=== PATIENT | female | born 1945 | race Caucasian/White ===

== ENCOUNTER 2020-09-03 06:55 | Outpatient (REF) | payer MEDICARE, SELFPAY ==
[2020-09-03 11:11] LABS: MANUAL DIFF FLAG NO
[2020-09-03 11:25] LABS: Basophils Absolute Auto 0.1 X10*3/uL (0.0-0.2); Basophils Percent Auto 0.4 % (0-2); Eosinophils Absolute Auto 0.4 X10*3/uL (0.0-0.4); Eosinophils Percent Auto 3.1 % (0-4); Hematocrit 47.8 % (37-47); Hemoglobin 15.1 g/dl (12.0-16.0); Imm Gran Abs Auto 0.03 X10*3/uL (0.00-0.03); Imm Gran Pct Auto 0.3 % (0.0-0.4); Lymphocytes Absolute Auto 3.2 X10*3/uL (1.2-4.9); Lymphocytes Percent Auto 29.1 % (20-40); Mean Corpuscular HGB Conc 31.6 g/dl (31.0-35.0); Mean Corpuscular Hemoglobin 29.5 pg (27.0-33.0); Mean Corpuscular Volume 93.5 fL (80-98); Mean Platelet Volume 10.9 fL (9.4-12.3); Monocytes Absolute Auto 0.8 X10*3/uL (0.1-1.2); Monocytes Percent Auto 6.8 % (2-11); Neutrophils Absolute Auto 6.7 X10*3/uL (2.0-8.3); Neutrophils Percent Auto 60.3 % (45-73); Platelet Count 260 X10*3/uL (160-400); Red Blood Count 5.11 X10*6/uL (4.20-5.50); Red Cell Distribution Width 12.5 % (11.0-16.0); White Blood Count 11.1 X10*3/uL (4.8-10.8)
[2020-09-03 11:30] LABS: Estimated Average Glucose 134 mg/dL; Hemoglobin A1c % 6.3 %
[2020-09-03 11:35] LABS: Alanine Aminotransferase 27 U/L (0-31); Albumin Level 4.2 g/dL (3.5-5.0); Alkaline Phosphatase 90 U/L (39-117); Anion Gap 14 (12-20); Aspartate Amino Transferase 22 U/L (5-31); Bilirubin Total 0.7 mg/dL (0.0-1.0); Blood Urea Nitrogen 15 mg/dL (9-16); Calcium 8.8 mg/dL (8.4-10.2); Carbon Dioxide 28 mmol/L (22-29); Chloride 104 mmol/L (96-108); Cholesterol 152 mg/dL; Estimated Glomerular Filt Rate > 60; Glucose Fasting 137 mg/dL (60-99); HDL Cholesterol 48 mg/dL; LDL Cholesterol Calculated 80 mg/dl; Potassium 4.2 mmol/L (3.3-5.1); Sodium 142 mmol/L (135-145); Triglycerides 123 mg/dL
[2020-09-03 11:38] LABS: Glucose Urine UA NEG (NEG); Leukocyte Esterase Urine NEG (NEG); Nitrite Urine NEG (NEG); Urine Blood TRACE (NEG); Urine Ketones NEG (NEG); Urine Protein NEG (NEG-TRACE)
[2020-09-03 11:46] LABS: Appearance Urine CLEAR; Color Urine YELLOW
[2020-09-03 11:58] LABS: Thyroid Stimulating Hormone 1.15 uIU/mL (0.32-4.0); Vitamin D 25-OH Total 40.4 ng/mL (>30)
[2020-09-03 12:05] LABS: Creatinine Urine 65.54 mg/dL; Microalbum/Creatinine Ratio Ur 39.6 ug/mg cr
[2020-09-03 12:19] LABS: RBC Urine 0-2 /HPF (0); Squamous Epithelial Cell Urine 1+ /LPF; WBC Urine 0 /HPF (0-4)
== END 2020-09-03 06:56 | disposition home or self-care (01) ==
LOC: HO.HMGCLDS 06:55
PROVIDERS: PCP Internal Medicine; Visit Provider Internal Medicine
DX: I10 Essential (primary) hypertension (principal); E78.00 Pure hypercholesterolemia, unspecified; E55.9 Vitamin D deficiency, unspecified
CPT/HCPCS: 36415; 80053; 80061; 81001; 82043; 82306; 83036; 84443; 85025

== ENCOUNTER 2020-10-16 12:45 | Outpatient (REF) | payer MEDICARE, SELFPAY ==
--- NOTE | ~2020-10-16 | MR_ITS ---
EXAMINATION: MR LUMBAR SPINE WITHOUT CONTRAST CLINICAL INFORMATION: Right L5 radiculitis. Scoliosis/spinal stenosis. COMPARISON: Lumbar spine radiographs 06/27/2010. TECHNIQUE: MRI of the lumbar spine was obtained using routine sequences without contrast. FINDINGS: Severe rightward convex scoliotic curvature of the lumbar spine. There is a 1 retrolisthesis of T12 on L1, L1 on L2, L2 on L3, and L3 on L4. There is grade 1 anterolisthesis of L4 on L5. Multilevel endplate osteophytes. are Modic type I endplate signal changes throughout the entire lumbar spine. There are no acute fractures. The vertebral body heights are maintained. Severe disc volume loss at L5-S1 and moderate disc volume loss at L1-L2, L3-L4, and L4-L5. Disc desiccation at all lumbar levels. Conus terminates at the L1 level. Partially imaged simple left renal cyst for which no further imaging follow-up is warranted. Disc osteophyte and hypertrophic facet arthropathy result in severe right T11-T12 and severe left T12-L1 foraminal stenosis. L1-L2: Grade 1 retrolisthesis. Left paracentral/left lateral disc osteophyte protrusion compressing the traversing left L2 nerve root within the left subarticular zone and resulting in severe left foraminal stenosis with compression of the exiting left L1 nerve root. L2-L3: Disc osteophyte and moderate bilateral facet arthropathy and ligamentum flavum thickening. Mild narrowing of the central canal. Disc osteophyte and facet arthropathy result in moderate to severe left foraminal stenosis with mass effect on the exiting left L2 nerve root. L3-L4: Grade 1 retrolisthesis. Diffuse disc osteophyte complex. Severe bilateral facet arthropathy and ligamentum flavum thickening. Superimposed right paracentral/right lateral disc osteophyte protrusion resulting in mass effect on the traversing right L4 nerve root within the right subarticular zone and moderate to severe right foraminal stenosis with compression of the exiting right L3 nerve root. L4-L5: Grade 1 degenerative anterolisthesis. Severe bilateral facet arthropathy and ligamentum flavum thickening. Findings in concert result in moderate central canal stenosis, severe right subarticular zone stenosis with compression of the traversing right greater than left L5 nerve roots, and severe right foraminal stenosis with compression of the exiting right L4 nerve root. L5-S1: Right greater than left lateral disc osteophyte protrusions resulting in mass effect on the extraforaminal right greater than left L5 nerve roots. No central canal stenosis and no foraminal stenosis. MR/MR lumbar spine wo con IMPRESSION: - Rightward convex scoliotic curvature of the lumbar spine superimposed on advanced multilevel degenerative disc disease and hypertrophic facet arthropathy: - At L5-S1, right greater than left lateral disc osteophyte protrusions resulting in mass effect on the extraforaminal right greater than left L5 nerve roots. - At L4-L5, grade 1 degenerative anterolisthesis and advanced multifactorial degenerative changes result in moderate central canal stenosis, severe right subarticular zone stenosis with compression of the traversing right greater than left L5 nerve roots, and severe right foraminal stenosis with compression of the exiting right L4 nerve root. - At L3-L4, a right paracentral/right lateral disc osteophyte protrusion resulting in mass effect on the traversing right L4 nerve root within the right subarticular zone and moderate to severe right foraminal stenosis with compression of the exiting right L3 nerve root. - At L2-L3, multifactorial degenerative changes result in moderate to severe left foraminal stenosis with mass effect on the exiting left L2 nerve root. - At L1-L2, a left paracentral/left lateral disc osteophyte protrusion compresses the traversing left L2 nerve root within the left subarticular zone and results in severe left foraminal stenosis with compression of the exiting left L1 nerve root. - Disc osteophyte and hypertrophic facet arthropathy result in severe right T11-T12 and severe left T12-L1 foraminal stenosis.
== END 2020-10-16 12:46 | disposition home or self-care (01) ==
LOC: HO.MRI 12:45
PROVIDERS: Visit Provider Physical Medicine & Rehabilitation
DX: M54.16 Radiculopathy, lumbar region (principal); M41.9 Scoliosis, unspecified
CPT/HCPCS: 72148

== ENCOUNTER 2021-03-12 15:29 | Outpatient (REF) | payer MEDICARE, SELFPAY ==
--- NOTE | ~2021-03-12 | MM_ITS ---
EXAMINATION: MM SCREENING DIGITAL BREAST TOMOSYNTHESIS, BILATERAL CLINICAL INFORMATION: Screening. Asymptomatic. The lifetime risk of breast cancer based on the Tyrer-Cuzick Model is 3%. COMPARISON: Mammography: 11/22/2019, 06/13/2018, 06/01/2018, 04/30/2017; targeted left breast ultrasound 06/13/2018. TECHNIQUE: Digital breast tomosynthesis is performed in both the craniocaudal and mediolateral oblique views along with computer-aided detection (CAD). Synthesized 2D images are generated from the tomosynthesis. Additional bilateral CC views are provided. FINDINGS: There are scattered areas of fibroglandular density (ACR BI-RADS breast composition Category b). Parenchymal pattern is similar to prior exams. There is stable nodularity left breast mid upper outer quadrant and anterior mid 9:00 position. Right breast has scattered ductal secretory calcifications upper outer quadrant. Neither breast shows developing density or interval significant mass or architectural abnormality. No abnormal calcifications. No significant changes. MM/MM tomosynthesis screening BI IMPRESSION: No mammographic evidence of malignancy. ASSESSMENT: BI-RADS 2: Benign RECOMMENDATION: Routine annual mammography screening. This patient's information was entered into a reminder system with a target due date for their next mammogram.
== END 2021-03-12 15:30 | disposition home or self-care (01) ==
LOC: HO.MAMMO 15:29
PROVIDERS: PCP Internal Medicine; Visit Provider Internal Medicine
DX: Z12.31 Encounter for screening mammogram for malignant neoplasm of breast (principal)
CPT/HCPCS: 77063; 77067

== ENCOUNTER 2021-05-02 07:10 | Outpatient (REF) | payer MEDICARE, SELFPAY ==
[2021-05-02 11:54] LABS: MANUAL DIFF FLAG NO
[2021-05-02 11:58] LABS: Basophils Percent Auto 0.5 % (0-2); Eosinophils Absolute Auto 0.2 X10*3/uL (0.0-0.4); Eosinophils Percent Auto 2.2 % (0-4); Hematocrit 45.8 % (37.0-47.0); Imm Gran Abs Auto 0.02 X10*3/uL (0.00-0.03); Imm Gran Pct Auto 0.2 % (0.0-0.4); Lymphocytes Absolute Auto 3.1 X10*3/uL (1.2-4.9); Mean Corpuscular HGB Conc 32.8 g/dl (31.0-35.0); Mean Corpuscular Hemoglobin 30.9 pg (27.0-33.0); Mean Corpuscular Volume 94.2 fL (80.0-98.0); Mean Platelet Volume 10.3 fL (9.4-12.3); Monocytes Absolute Auto 0.7 X10*3/uL (0.1-1.2); Monocytes Percent Auto 8.2 % (2-11); Neutrophils Percent Auto 49.9 % (45-73); Platelet Count 282 X10*3/uL (160-400); Red Blood Count 4.86 X10*6/uL (4.20-5.50); Red Cell Distribution Width 12.4 % (11.0-16.0)
[2021-05-02 12:13] LABS: Alanine Aminotransferase 29 U/L (0-31); Albumin Level 4.1 g/dL (3.5-5.0); Alkaline Phosphatase 77 U/L (39-117); Anion Gap 16 (12-20); Aspartate Amino Transferase 18 U/L (5-31); Bilirubin Total 0.8 mg/dL (0.0-1.0); Blood Urea Nitrogen 16 mg/dL (9-16); Calcium 9.5 mg/dL (8.4-10.2); Carbon Dioxide 25 mmol/L (22-29); Chloride 105 mmol/L (96-108); Cholesterol 164 mg/dL; Estimated Glomerular Filt Rate > 60; Glucose Fasting 146 mg/dL (60-99); HDL Cholesterol 47 mg/dL; LDL Cholesterol Calculated 88 mg/dl; Potassium 4.5 mmol/L (3.3-5.1); Sodium 141 mmol/L (135-145); Total Protein 6.7 g/dL (6.5-8.0); Triglycerides 146 mg/dL
[2021-05-02 12:40] LABS: Thyroid Stimulating Hormone 0.98 uIU/mL (0.32-4.0); Vitamin D 25-OH Total 35.7 ng/mL (>30)
== END 2021-05-02 07:11 | disposition home or self-care (01) ==
LOC: HO.HMGCLDS 07:10
PROVIDERS: PCP Internal Medicine; Visit Provider Internal Medicine
DX: I49.49 Other premature depolarization (principal); I10 Essential (primary) hypertension; E78.00 Pure hypercholesterolemia, unspecified; E55.9 Vitamin D deficiency, unspecified
CPT/HCPCS: 36415; 80053; 80061; 82306; 83735; 84443; 85025

== ENCOUNTER → 2021-05-19 13:12 | Outpatient (REF) | payer MEDICARE, SELFPAY ==
--- NOTE | 2021-05-19 13:17 | ECG_ITS ---
Hook-up date: 2021-05-19 13:27:00 Duration: 24:48:00 Test Indications: ectopic cardiac beats Medications: [id number] QRS complexes 1951 Ventricular ectopics which represent 1 % of total QRS comp. 696 Supraventricular ectopics which represent <1 % of total QRS comp. * Paced QRS complexs which represent % of total QRS comp. VENTRICULAR ECTOPY 1918 Isolated 0 Bigeminal Cycles 15 Couplets 1 Runs 3 Beats in Runs 3 Beats LONGEST at 161 BPM at 11:21:54 2021-05-20 3 Beats FASTEST at 161 BPM at 11:21:54 2021-05-20 SUPRAVENTRICULAR ECTOPY 682 Isolated 4 Couplets 2 Runs 6 Beats in Runs 3 Beats LONGEST at 164 BPM at 22:04:08 2021-05-19 3 Beats FASTEST at 164 BPM at 22:04:08 2021-05-19 HEART RATES 49 MIN at 01:00:48 2021-05-20 84 AVG 126 MAX at 13:28:22 2021-05-19 LONGEST RR 1.6080 secs at 03:52:35 2021-05-20 S-T LEVELS Channel 1 - 128 mm at 13:27:00 2021-05-19 - 128 mm at 13:27:00 2021-05-19 Channel 2 - 128 mm at 13:27:00 2021-05-19 - 128 mm at 13:27:00 2021-05-19 Channel 3 - 128 mm at 03:24:61 -- - 128 mm at 03:24:61 Abnormal study revealing 1918 isolated ventricular ectopic beats, 15 ventricular couplets and one 3 beat run of nonsustained VT. There were 682 isolated supraventricular ectopic beats, 4 supraventricular couplets and two 3 beat runs of SVT. Minimum HR 49 bpm, maximum HR 126 bpm, average HR 84 bpm. Referred By: Osmar Tam Overread By: OSMAR TAM [facility]
== END ==
LOC: HO.CARD 13:12
PROVIDERS: Visit Provider Internal Medicine
DX: R00.2 Palpitations (principal); I49.9 Cardiac arrhythmia, unspecified
CPT/HCPCS: 93225; 93226

== ENCOUNTER 2021-09-03 07:00 | Outpatient (REF) | payer MEDICARE, SELFPAY ==
[2021-09-03 11:38] LABS: Appearance Urine HAZY; Color Urine YELLOW; Glucose Urine UA NEG (NEG); Leukocyte Esterase Urine TRACE (NEG); Nitrite Urine NEG (NEG); PH 5.5 (5.0-8.0); Urine Blood NEG (NEG); Urine Ketones NEG (NEG); Urine Protein NEG (NEG-TRACE)
[2021-09-03 11:41] LABS: Estimated Average Glucose 137 mg/dL; Hemoglobin A1c % 6.4 %
[2021-09-03 11:59] LABS: Alanine Aminotransferase 28 U/L (0-31); Albumin Level 4.1 g/dL (3.5-5.0); Alkaline Phosphatase 81 U/L (39-117); Anion Gap 13 (12-20); Aspartate Amino Transferase 20 U/L (5-31); Bilirubin Total 0.8 mg/dL (0.0-1.0); Blood Urea Nitrogen 14 mg/dL (9-16); Calcium 9.3 mg/dL (8.4-10.2); Carbon Dioxide 26 mmol/L (22-29); Chloride 105 mmol/L (96-108); Estimated Glomerular Filt Rate > 60; Glucose Fasting 147 mg/dL (60-99); Potassium 4.6 mmol/L (3.3-5.1); Sodium 139 mmol/L (135-145); Total Protein 6.7 g/dL (6.5-8.0)
[2021-09-03 12:10] LABS: Creatinine Urine 62.84 mg/dL; Microalbum/Creatinine Ratio Ur 7.9 ug/mg cr
[2021-09-03 12:29] LABS: Mucus Urine TRACE /LPF; Renal Epithelial Cells Urine TRACE /LPF; Squamous Epithelial Cell Urine 1+ /LPF
[2021-09-03 12:30] LABS: RBC Urine 0 /HPF (0)
== END 2021-09-03 07:01 | disposition home or self-care (01) ==
LOC: HO.HMGCLDS 07:00
PROVIDERS: Visit Provider Internal Medicine
DX: I10 Essential (primary) hypertension (principal); E78.00 Pure hypercholesterolemia, unspecified
CPT/HCPCS: 36415; 80053; 81001; 82043; 83036

== ENCOUNTER 2022-03-11 07:09 | Outpatient (REF) | payer MEDICARE, SELFPAY ==
[2022-03-11 11:17] LABS: MANUAL DIFF FLAG NO
[2022-03-11 11:27] LABS: Basophils Absolute Auto 0.1 X10*3/uL (0.0-0.2); Basophils Percent Auto 0.5 % (0-2); Eosinophils Absolute Auto 0.2 X10*3/uL (0.0-0.4); Eosinophils Percent Auto 2.4 % (0-4); Hematocrit 46.7 % (37.0-47.0); Hemoglobin 15.1 g/dl (12.0-16.0); Imm Gran Abs Auto 0.02 X10*3/uL (0.00-0.03); Imm Gran Pct Auto 0.2 % (0.0-0.4); Lymphocytes Absolute Auto 3.8 X10*3/uL (1.2-4.9); Lymphocytes Percent Auto 41.2 % (20-40); Mean Corpuscular HGB Conc 32.3 g/dl (31.0-35.0); Mean Corpuscular Hemoglobin 29.7 pg (27.0-33.0); Mean Corpuscular Volume 91.7 fL (80.0-98.0); Mean Platelet Volume 10.7 fL (9.4-12.3); Monocytes Absolute Auto 0.9 X10*3/uL (0.1-1.2); Monocytes Percent Auto 9.7 % (2-11); Neutrophils Absolute Auto 4.2 x10*3/uL (2.0-8.3); Platelet Count 289 X10*3/uL (160-400); Red Blood Count 5.09 X10*6/uL (4.20-5.50); Red Cell Distribution Width 12.8 % (11.0-16.0); White Blood Count 9.1 X10*3/uL (4.8-10.8)
[2022-03-11 11:32] LABS: Estimated Average Glucose 140 mg/dL; Hemoglobin A1c % 6.5 %
[2022-03-11 12:07] LABS: Alanine Aminotransferase 28 U/L (0-31); Albumin Level 4.3 g/dL (3.5-5.0); Alkaline Phosphatase 91 U/L (39-117); Anion Gap 16 (12-20); Aspartate Amino Transferase 20 U/L (5-31); Bilirubin Total 0.7 mg/dL (0.0-1.0); Blood Urea Nitrogen 18 mg/dL (9-16); Calcium 9.3 mg/dL (8.4-10.2); Carbon Dioxide 24 mmol/L (22-29); Chloride 105 mmol/L (96-108); Cholesterol 151 mg/dL; Estimated Glomerular Filt Rate > 60; Glucose Fasting 135 mg/dL (60-99); HDL Cholesterol 47 mg/dL; LDL Cholesterol Calculated 85 mg/dl; Potassium 4.1 mmol/L (3.3-5.1); Sodium 141 mmol/L (135-145); Triglycerides 97 mg/dL
[2022-03-11 12:29] LABS: Thyroid Stimulating Hormone 1.14 uIU/mL (0.32-4.0); Vitamin D 25-OH Total 40.5 ng/mL (>30)
== END 2022-03-11 07:10 | disposition home or self-care (01) ==
LOC: HO.HMGCLDS 07:09
PROVIDERS: PCP Internal Medicine; Visit Provider Internal Medicine
DX: I10 Essential (primary) hypertension (principal); E78.00 Pure hypercholesterolemia, unspecified; E55.9 Vitamin D deficiency, unspecified; M19.90 Unspecified osteoarthritis, unspecified site; H93.13 Tinnitus, bilateral
CPT/HCPCS: 36415; 80053; 80061; 82306; 83036; 84443; 85025

== ENCOUNTER 2022-03-17 14:19 | Outpatient (REF) | payer MEDICARE, SELFPAY ==
--- NOTE | ~2022-03-17 | MM_ITS ---
EXAMINATION: MM SCREENING DIGITAL BREAST TOMOSYNTHESIS, BILATERAL CLINICAL INFORMATION: Screening. Asymptomatic. The lifetime risk of breast cancer based on the Tyrer-Cuzick Model is 3%. COMPARISON: Mammography: 03/12/2021, 11/22/2019, 06/13/2018, 06/01/2018 TECHNIQUE: Digital breast tomosynthesis is performed in both the craniocaudal and mediolateral oblique views along with computer-aided detection (CAD). Synthesized 2D images are generated from the tomosynthesis. FINDINGS: There are scattered areas of fibroglandular density (ACR BI-RADS breast composition Category b). There are no significant masses, abnormal calcifications, or other abnormalities. There is no developing density or interval architectural abnormality. Intramammary node mid upper outer left breast is similar to prior studies. There are some benign regional round and ductal secretory calcifications again noted anterior left and outer right breast. The axilla and skin contours are unremarkable. No significant changes. MM/MM tomosynthesis screening BI IMPRESSION: No mammographic evidence of malignancy. ASSESSMENT: BI-RADS 2: Benign RECOMMENDATION: Routine annual mammography screening. This patient's information was entered into a reminder system with a target due date for their next mammogram.
== END 2022-03-17 14:20 | disposition home or self-care (01) ==
LOC: HO.MAMMO 14:19
PROVIDERS: PCP Internal Medicine; Visit Provider Internal Medicine
DX: Z12.31 Encounter for screening mammogram for malignant neoplasm of breast (principal)
CPT/HCPCS: 77063; 77067

== ENCOUNTER 2022-09-02 07:07 | Outpatient (REF) | payer MEDICARE, SELFPAY ==
[2022-09-02 11:54] LABS: Alanine Aminotransferase 27 U/L (0-31); Albumin Level 4.2 g/dL (3.5-5.0); Alkaline Phosphatase 101 U/L (39-117); Anion Gap 12 (12-20); Aspartate Amino Transferase 17 U/L (5-31); Bilirubin Total 0.9 mg/dL (0.0-1.0); Blood Urea Nitrogen 20 mg/dL (9-16); Calcium 9.4 mg/dL (8.4-10.2); Carbon Dioxide 28 mmol/L (22-29); Chloride 105 mmol/L (96-108); Cholesterol 168 mg/dL; Estimated Glomerular Filt Rate > 60; Glucose Fasting 146 mg/dL (60-99); HDL Cholesterol 48 mg/dL; LDL Cholesterol Calculated 89 mg/dl; Potassium 4.9 mmol/L (3.3-5.1); Sodium 140 mmol/L (135-145); Total Protein 6.7 g/dL (6.5-8.0); Triglycerides 158 mg/dL
[2022-09-02 11:56] LABS: Estimated Average Glucose 143 mg/dL; Hemoglobin A1c % 6.6 %
== END 2022-09-02 07:08 | disposition home or self-care (01) ==
LOC: HO.HMGCLDS 07:07
PROVIDERS: PCP Internal Medicine; Visit Provider Internal Medicine
DX: I10 Essential (primary) hypertension (principal); E78.00 Pure hypercholesterolemia, unspecified; G56.02 Carpal tunnel syndrome, left upper limb; R73.01 Impaired fasting glucose
CPT/HCPCS: 36415; 80053; 80061; 83036; 99202

== ENCOUNTER 2022-09-07 10:23 | Day surgery (SDC) | payer MEDICARE, SELFPAY ==
[2022-09-07 11:27] VITALS: BMI 28.1
--- NOTE | 2022-09-07 11:31 | W.PM.OPN ---
Operative Note Operative Note Date of Service: 09/07/22 Narrative: Preop diagnosis: 1. Left Carpal tunnel syndrome Postop diagnosis: same Procedure: 1. Left Carpal tunnel release Surgeon: Katlyn Montiel MD Anesthesia: local block using 1% lidocaine with epinephrine Findings: Thickened transverse carpal ligament. EBL: Less than 5 mL Specimens: None Complications: None Disposition: Brought to recovery room in stable condition Plan: Follow-up for 10-14 days for wound check and suture removal Indications: The patient is a 76 years old, with left carpal tunnel syndrome that has been unresponsive to nonoperative management. The risks and benefits of operative treatment including but not limited to risk of damage to blood vessels, nerves, tendons, infection, persistent pain, persistent symptoms, or possible need for additional surgery were discussed with the patient and the patient wishes to proceed with surgery. Procedure: Once consent was obtained a local block was performed using a combination of 1% lidocaine with epinephrine. The patient was then brought back to the operating suite and placed on the operative table in supine position. The left upper extremity was prepped and draped in a standard surgical fashion. Once assured that we had a good block, a 2.0 cm longitudinal incision was made centered over the carpal tunnel. The incision was made through the skin to the subcutaneous tissues using a #15 blade. Dissection was made down to the level of the transverse carpal ligament with care being taken to protect the palmar cutaneous nerve. Once the transverse carpal ligament was clearly visualized, a longitudinal incision was made in the transverse carpal ligament 1st using a #15 blade, then using tenotomy scissors under direct visualization. Care was taken to look for and protect the motor branch of the median nerve when seen in this area. Once satisfied with our carpal tunnel release the wound was copiously irrigated with normal saline and hemostasis was obtained with a brief period of local pressure. The skin edges were reapproximated with some 5.0 nylon suture material and a sterile dressing was applied. The patient appears to have tolerated the procedure well and with no complications. All digits were well vascularized at the conclusion of the case.
--- NOTE | 2022-09-07 13:47 | PC.NURSE ---
POST OP VITAL SIGNS: 88, 16, 99% RA, 152/74.
== END 2022-09-07 13:47 | disposition home or self-care (01) ==
PROVIDERS: PCP Internal Medicine; Visit Provider Orthopaedic Surgery
PROC: (CPT 64721; principal; 2022-09-07 12:40)
DX: G56.02 Carpal tunnel syndrome, left upper limb (principal)
CPT/HCPCS: 64721; J0171

== ENCOUNTER → 2022-09-22 12:33 | Outpatient (BNVA) | payer MEDICARE, SELFPAY | PROVIDERS: PCP Internal Medicine; Visit Provider Orthopaedic Surgery | DX: Z47.89 Encounter for other orthopedic aftercare (principal); Z86.69 Personal history of other diseases of the nervous system and sense organs | CPT/HCPCS: 99212 ==

== ENCOUNTER 2022-10-13 15:27 | Outpatient (REF) | payer MEDICARE, SELFPAY ==
[2022-10-13 17:22] LABS: Erythrocyte Sedimentation Rate 5 MM/HR (0-20)
[2022-10-13 17:49] LABS: Thyroid Stimulating Hormone 0.79 uIU/mL (0.32-4.0)
[2022-10-21 16:48] LABS: Acetylcholine Recep Modulating 22
[2022-10-23 19:23] LABS: Acetylcholine Receptor Binding <0.30 nmol/L
== END 2022-10-13 15:28 | disposition home or self-care (01) ==
LOC: HO.LAB 15:27
PROVIDERS: PCP Internal Medicine; Visit Provider Psychiatry & Neurology Neurology
DX: H53.2 Diplopia (principal)
CPT/HCPCS: 36415; 82550; 83519; 84443; 85652

== ENCOUNTER 2022-10-16 13:20 | Outpatient (REF) | payer MEDICARE, SELFPAY ==
--- NOTE | ~2022-10-16 | MR_ITS ---
EXAMINATION: MR LUMBAR SPINE WITHOUT CONTRAST CLINICAL INFORMATION: Spondylosis, scoliosis, stenosis. COMPARISON: Lumbar spine MRI 10/16/2020. TECHNIQUE: MRI of the lumbar spine was obtained using routine sequences without contrast. FINDINGS: There is moderate to severe dextroscoliotic curvature centered at the thoracolumbar junction with asymmetric left-sided disc height loss seen along the inner margin of the curvature particularly at T12-L1 and L1-L2. There is levoscoliotic curvature in the lower lumbar spine. There is diffuse intervertebral disc height loss throughout the visualized thoracolumbar levels. Endplate edema is seen at T12-L1, L1-L2, and L2-L3. The distal spinal cord appears normal. The conus medullaris terminates normally at the L1 level. There is fatty atrophy of the posterior paraspinal musculature. There is a 1.7 cm nodule involving the left adrenal gland which appears similar compared with prior. SPINAL LEVELS: T12-L1: Disc bulging asymmetric to the left resulting in stable moderate left neural foraminal stenosis. No spinal canal stenosis. L1-L2: Disc bulging asymmetric to the left with facet arthropathy resulting in unchanged severe left neural foraminal stenosis. No spinal canal stenosis. L2-L3: Disc bulging with moderate facet arthropathy. No spinal canal stenosis. Stable moderate to severe left neural foraminal stenosis. L3-L4: Disc bulging asymmetric to the right with ligamentum flavum infolding and moderate facet arthropathy resulting in right subarticular stenosis and compression of the traversing right L4 nerve root, similar to prior. Mild spinal canal stenosis. Mild to moderate left and moderate to severe right neural foraminal stenosis with compression of the exiting right L3 nerve root, mildly progressed. L4-L5: Grade 1 anterolisthesis with unroofing of the disc and severe right more than left facet arthropathy with ligamentum flavum infolding resulting in mild to moderate spinal canal stenosis and bilateral subarticular stenosis with unchanged compression of the traversing L5 nerve roots. Unchanged severe right neural foraminal stenosis with compression of the exiting right L4 nerve root. Stable mild left neural foraminal stenosis. L5-S1: Disc bulging with severe facet arthropathy. No spinal canal stenosis. Osteophytic ridging contacts the extraforaminal right L5 nerve root without change. MR/MR lumbar spine wo con IMPRESSION: 1. Advanced multilevel degenerative spondylosis in the setting of moderate to severe dextroscoliotic curvature centered at the thoracolumbar junction. No significant narrowing of the spinal canal. 2. At L3-L4 there is right subarticular stenosis with compression of the traversing right L4 nerve root. Moderate to severe right neural foraminal stenosis with compression of the exiting right L3 nerve root, mildly progressed. 3. At L4-L5 there is grade 1 anterolisthesis and unchanged severe right neural foraminal stenosis with compression of the exiting right L4 nerve root. 4. Additional milder spondylotic changes appear similar compared with prior. 5. Stable left adrenal nodule measuring 1.7 cm for which one-year follow-up adrenal protocol CT is recommended.
== END 2022-10-16 13:21 | disposition home or self-care (01) ==
LOC: HO.MRI 13:20
PROVIDERS: PCP Internal Medicine; Visit Provider Physical Medicine & Rehabilitation
DX: M47.896 Other spondylosis, lumbar region (principal); M54.16 Radiculopathy, lumbar region
CPT/HCPCS: 72148

== ENCOUNTER 2022-11-05 13:19 | Outpatient (REF) | payer MEDICARE, SELFPAY ==
--- NOTE | ~2022-11-05 | XR_ITS ---
EXAMINATION: XR LUMBOSACRAL SPINE WITH OBLIQUES CLINICAL INFORMATION: Radiculopathy and scoliosis COMPARISON: Previous x-ray from 2017 TECHNIQUE: AP, both oblique, flexion and extension and lateral views of the lumbar spine. Lateral view of the lumbosacral junction. FINDINGS: Curvature of the lower lumbar spine to the left. 1.1 cm anterior subluxation of L4 with respect L5 in neutral position. This increases to 1.5 cm with flexion. Bone alignment is otherwise normal. No fracture or dislocation. Multilevel degenerative disc disease and spondylosis. Multilevel facet arthritis. No pars defect is evident. Atherosclerotic disease. XR/XR lumbar spine 6V w bending IMPRESSION: Mild curvature of the lower lumbar spine to the left. Anterior subluxation of L4 with respect to L5 slightly increased with flexion. Multilevel degenerative spondylosis degenerative disc disease and facet arthritis.
== END 2022-11-05 13:20 | disposition home or self-care (01) ==
LOC: HO.XRAY 13:19
PROVIDERS: PCP Internal Medicine; Visit Provider Physical Medicine & Rehabilitation
DX: M54.16 Radiculopathy, lumbar region (principal); M47.896 Other spondylosis, lumbar region; M41.9 Scoliosis, unspecified
CPT/HCPCS: 72114

== ENCOUNTER 2023-02-18 12:58 | Outpatient (REF) | payer MEDICARE, SELFPAY ==
--- NOTE | ~2023-02-18 | MR_ITS ---
EXAMINATION: MR BRAIN WITHOUT CONTRAST CLINICAL INFORMATION: Diplopia COMPARISON: None. TECHNIQUE: MRI of the brain was obtained using routine sequences without contrast. FINDINGS: No acute infarct. No acute intracranial hemorrhage or extra-axial fluid collection. Mild generalized parenchymal volume loss. Mild to moderate burden of patchy T2 FLAIR hyperintense foci in the subcortical and periventricular white matter, with some demonstrating a somewhat orthogonal orientation relative to the lateral ventricles and some lesions involving the bilateral temporal lobe periventricular white matter raising the possibility of underlying demyelinating disease. There is T2 FLAIR hyperintensity along the callososeptal interface. Some lesions demonstrate corresponding T1 hypointense signal. No definite infratentorial lesions identified. No mass lesion, mass effect, or herniation pattern. Normal intracranial arterial and dural venous sinus flow voids. Normal appearance of the midline structures. Bilateral lens extractions. Mild scattered paranasal sinus mucosal disease with proteinaceous retention cyst in the right maxillary sinus. Normal marrow signal. MR/MR head/brain wo con IMPRESSION: Mild to moderate burden of nonspecific supratentorial white matter disease with imaging features raising the possibility of underlying demyelinating disease which can be correlated with CSF fluid sampling as clinically warranted. No acute intracranial process. The orbits are grossly unremarkable on this nondedicated examination.
== END 2023-02-18 12:59 | disposition home or self-care (01) ==
LOC: HO.MRI 12:58
PROVIDERS: PCP Internal Medicine; Visit Provider Psychiatry & Neurology Neurology
DX: H53.2 Diplopia (principal)
CPT/HCPCS: 70551

== ENCOUNTER 2023-03-11 07:34 | Outpatient (REF) | payer MEDICARE, SELFPAY ==
[2023-03-11 11:36] LABS: MANUAL DIFF FLAG NO
[2023-03-11 11:49] LABS: Appearance Urine Clear; Basophils Percent Auto 0.5 % (0-2); Color Urine Yellow; Eosinophils Absolute Auto 0.2 X10*3/uL (0.0-0.4); Eosinophils Percent Auto 2.8 % (0-4); Glucose Urine UA Negative (Negative); Hematocrit 48.1 % (37.0-47.0); Hemoglobin 15.5 g/dl (12.0-16.0); Imm Gran Abs Auto 0.03 X10*3/uL (0.00-0.03); Imm Gran Pct Auto 0.3 % (0.0-0.4); Leukocyte Esterase Urine Trace (Negative); Lymphocytes Absolute Auto 2.4 X10*3/uL (1.2-4.9); Mean Corpuscular HGB Conc 32.2 g/dl (31.0-35.0); Mean Corpuscular Hemoglobin 29.9 pg (27.0-33.0); Mean Corpuscular Volume 92.7 fL (80.0-98.0); Mean Platelet Volume 10.5 fL (9.4-12.3); Monocytes Absolute Auto 0.7 X10*3/uL (0.1-1.2); Monocytes Percent Auto 7.7 % (2-11); Neutrophils Absolute Auto 5.4 x10*3/uL (2.0-8.3); Neutrophils Percent Auto 61.7 % (45-73); Nitrite Urine Negative (Negative); PH 5.5 (5.0-9.0); Platelet Count 278 X10*3/uL (160-400); Red Blood Count 5.19 X10*6/uL (4.20-5.50); Red Cell Distribution Width 12.3 % (11.0-16.0); Specific Gravity - Urine 1.015 (1.005-1.025); UMIC TRIGGER UA YES; Urine Blood Small (1+) (Negative); Urine Ketones Negative (Negative); Urine Protein Negative (Neg-Trace); White Blood Count 8.7 X10*3/uL (4.8-10.8)
[2023-03-11 12:01] LABS: Bacteria Urine None Seen (None Seen); Hyaline Casts Urine 0-2 /LPF (0-2); Squamous Epithelial Cell Urine 0-2 /HPF (0-2); WBC Urine 0-5 /HPF (0-5)
[2023-03-11 12:09] LABS: Alanine Aminotransferase 20 U/L (0-31); Albumin Level 4.1 g/dL (3.5-5.0); Alkaline Phosphatase 80 U/L (39-117); Anion Gap 12 (12-20); Aspartate Amino Transferase 17 U/L (5-31); Bilirubin Direct 0.3 mg/dL (0.0-0.5); Bilirubin Total 0.7 mg/dL (0.0-1.0); Blood Urea Nitrogen 15 mg/dL (9-16); Calcium 9.5 mg/dL (8.4-10.2); Carbon Dioxide 26 mmol/L (22-29); Chloride 105 mmol/L (96-108); Estimated Glomerular Filt Rate > 60; Glucose Random 167 mg/dL (60-115); Potassium 4.2 mmol/L (3.3-5.1); Sodium 139 mmol/L (135-145)
== END 2023-03-11 07:35 | disposition home or self-care (01) ==
LOC: HO.HMGCLDS 07:34
PROVIDERS: PCP Internal Medicine; Visit Provider Internal Medicine
DX: M48.062 Spinal stenosis, lumbar region with neurogenic claudication (principal); I10 Essential (primary) hypertension; E78.00 Pure hypercholesterolemia, unspecified; E55.9 Vitamin D deficiency, unspecified
CPT/HCPCS: 36415; 80048; 80076; 81001; 85025

== ENCOUNTER → 2023-03-12 13:24 | Outpatient (REF) | payer MEDICARE, SELFPAY ==
--- NOTE | 2023-03-12 13:39 | ECG_ITS ---
Test Reason : preop Blood Pressure : / mmHG Vent. Rate : 088 BPM Atrial Rate : 088 BPM P-R Int : 134 ms QRS Dur : 084 ms QT Int : 358 ms P-R-T Axes : 003 -79 069 degrees QTc Int : 433 ms Normal sinus rhythm Left anterior fascicular block Possible Lateral infarct , age undetermined Abnormal ECG No previous ECGs available Referred By: Osmar Tam Electronically Signed By:BETTE OLVERA MD
== END ==
LOC: HO.CARD 13:24
PROVIDERS: PCP Internal Medicine; Visit Provider Internal Medicine
DX: M48.062 Spinal stenosis, lumbar region with neurogenic claudication (principal); I10 Essential (primary) hypertension; E55.9 Vitamin D deficiency, unspecified; E78.00 Pure hypercholesterolemia, unspecified
CPT/HCPCS: 93005

== ENCOUNTER 2023-03-24 14:56 | Outpatient (REF) | payer MEDICARE, SELFPAY ==
--- NOTE | ~2023-03-24 | MM_ITS ---
EXAMINATION: MM SCREENING DIGITAL BREAST TOMOSYNTHESIS, BILATERAL CLINICAL INFORMATION: Screening. Asymptomatic. COMPARISON: Mammography: This study is compared with prior exams dating back to 2017. TECHNIQUE: Digital breast tomosynthesis is performed in both the craniocaudal and mediolateral oblique views along with computer-aided detection (CAD). Synthesized 2D images are generated from the tomosynthesis. FINDINGS: There are scattered areas of fibroglandular density (ACR BI-RADS breast composition Category b). There are no significant masses, abnormal calcifications, or other abnormalities. Few, bilateral, benign calcifications are present in each breast. MM/MM tomosynthesis screening BI IMPRESSION: No mammographic evidence of malignancy. ASSESSMENT: BI-RADS BI-RADS 2 - Benign Findings RECOMMENDATION: Routine annual mammography screening. 1 year F/U This examination should not preclude the clinical evaluation of a suspicious palpable abnormality. This patient's information was entered into a reminder system with a target due date for their next mammogram.
== END 2023-03-24 14:57 | disposition home or self-care (01) ==
LOC: HO.MAMMO 14:56
PROVIDERS: PCP Internal Medicine; Visit Provider Internal Medicine
DX: Z12.31 Encounter for screening mammogram for malignant neoplasm of breast (principal)
CPT/HCPCS: 77063; 77067

== ENCOUNTER → 2023-03-24 15:15 | Outpatient (BNV) | payer MEDICARE, SELFPAY | PROVIDERS: PCP Internal Medicine; Visit Provider Radiology Diagnostic Radiology | DX: Z12.31 Encounter for screening mammogram for malignant neoplasm of breast (principal) | CPT/HCPCS: 77063; 77067 ==

== ENCOUNTER 2023-08-02 06:24 | Day surgery (SDC) | payer MEDICARE, SELFPAY ==
[2023-07-29 12:38] VITALS: BMI 28.3
--- NOTE | 2023-07-30 12:14 | HO.ANESPROP2 ---
HPI - Anesthesia Eval Consult details Narrative: 77yo F for Colonoscopy 06/29/23 Eval by neuro for diplopia. MS vs microvascular ds but no indication for tx at this time PMFSH Active Problems Active Problems: All Active Problems (Updated 07/29/23 @ 12:40 by Michela Harry RN) Carpal tunnel syndrome of left wrist (Acute) Past Medical History Medical History Hx of multiple sclerosis Spinal stenosis Osteoarthritis Diet-controlled diabetes mellitus High blood pressure Surgical History Surgical History History of back surgery H/O colonoscopy Hx of arthroscopy of knee Hx of dilation and curettage Hx of tonsillectomy History of carpal tunnel surgery of left wrist Social History Social History Patient Tobacco Use Status: Former Tobacco user Quit Date: >10 years ago Tobacco use type: Cigarette Are you DNR?: No Advance Directives: No Advance Directives Information Provided: Yes Recently lost weight without trying: No Nutrition Risks: No Nutritional Risk Patient : No Meds Allergies Allergy/AdvReac Type Severity Reaction Status Date / Time Iodinated Contrast Media Allergy Severe RASH Verified 07/29/23 12:37 [IV CONTRAST] Home Medications Medication Instructions Recorded Confirmed Last Taken Type aspirin 81 mg tablet,delayed 81 mg PO DAILY 09/02/22 07/29/23 07/26/23 History release atorvastatin 10 mg tablet 10 mg PO DAILY 09/02/22 07/29/23 Unknown History celecoxib 50 mg capsule (Celebrex) 50 mg PO BID 09/02/22 07/29/23 07/26/23 History cholecalciferol (vitamin D3) 10 10 mcg PO DAILY 09/02/22 07/29/23 Unknown History mcg (400 unit) capsule lisinopril 20 mg tablet 20 mg PO DAILY 09/02/22 07/29/23 08/02/23 History multivitamin 1 tab PO DAILY 07/29/23 07/29/23 Unknown History Exam Height,Weight and Vital Signs: Height 5 ft 6.5 in Weight 80.739 kg Pertinent Lab Results Pertinent Lab Results: Laboratory Tests 03/11/23 07:46 WBC 8.7 Hgb 15.5 Hct 48.1 H Plt Count 278 Sodium 139 Potassium 4.2 Chloride 105 Carbon Dioxide 26 BUN 15 Creatinine 0.63 Assessment and Plan Assessment Anesthesia Assessment: Chart Reviewed
[2023-08-02 06:29] VITALS: BP 149/66; PULSE 97; RESP 18; TEMP 36.8; O2SAT 96; BMI 28.4
[2023-08-02] MEDS: Lactated Ringers 1,000 ML 100 ML IVCONT (06:55)
--- NOTE | 2023-08-02 07:27 | HO.ANESPROP2 ---
[facility] Active Problems Active Problems: All Active Problems (Updated 08/02/23 @ 06:44 by Josefina Beltran RN) Carpal tunnel syndrome of left wrist (Acute) Past Medical History Medical History Hx of multiple sclerosis Spinal stenosis Osteoarthritis Diet-controlled diabetes mellitus High blood pressure Functional capacity: independent ambulation Patient : No Family History Family history of problems with anesthesia: No Surgical History Surgical History History of back surgery H/O colonoscopy Hx of arthroscopy of knee Hx of dilation and curettage Hx of tonsillectomy History of carpal tunnel surgery of left wrist History of Problems with Anesthesia: No Social History Social History Patient Tobacco Use Status: Former Tobacco user Quit Date: >10 years ago Tobacco use type: Cigarette Are you DNR?: No Advance Directives: No Advance Directives Information Provided: Yes Recently lost weight without trying: No Nutrition Risks: No Nutritional Risk Meds Allergies Allergy/AdvReac Type Severity Reaction Status Date / Time Iodinated Contrast Media Allergy Severe RASH Verified 07/29/23 12:37 [IV CONTRAST] Active Medications: Current Medications Lactated Ringer's (Lr) 1,000 mls @ 100 mls/hr IVCONT .Q10H MAINE Last Admin: 08/02/23 06:55 Dose: 100 mls/hr Sodium Biphosphate/Sodium Phosphate (Sodium Phosphate,Seneca-Dibasic 133 Ml Enema) 133 ml DC ONCE PRN PRN Reason: Poor Colonoscopy Prep Results Home Medications Medication Instructions Recorded Confirmed Last Taken Type aspirin 81 mg tablet,delayed 81 mg PO DAILY 09/02/22 07/29/23 07/26/23 History release atorvastatin 10 mg tablet 10 mg PO DAILY 09/02/22 07/29/23 Unknown History celecoxib 50 mg capsule (Celebrex) 50 mg PO BID 09/02/22 07/29/23 07/26/23 History cholecalciferol (vitamin D3) 10 10 mcg PO DAILY 09/02/22 07/29/23 Unknown History mcg (400 unit) capsule lisinopril 20 mg tablet 20 mg PO DAILY 09/02/22 07/29/23 08/02/23 History multivitamin 1 tab PO DAILY 07/29/23 07/29/23 Unknown History Exam Height,Weight and Vital Signs: Height 5 ft 6.5 in Weight 80.9 kg Last Vital Signs Temp 98.3 F 08/02/23 06:29 Pulse 97 08/02/23 06:29 Resp 18 08/02/23 06:29 BP 149/66 H 08/02/23 06:29 Pulse Ox 96 08/02/23 06:29 O2 Del Method Room Air 08/02/23 06:29 Airway Mallampati Class: II TM Dist: >3cm Neck ROM: Full Heart: RRR Lungs: CTA Assessment and Plan Assessment Anesthesia Assessment: Anesthesia Plan Discussed Final Anesthetic Review Family History of Problems with Anesthesia: No History of Problems with Anesthesia: No NPO: Yes ASA Class: II Final Preanesthetic Review: Meds/Allgs Chart Reviewed, Consent Obtained/Reviewed and Anes Risks/Benef Reviewed Patient Risk: Low Procedure Risk: Low Anesthetic Plan Anesthetic Plan: MAC: Disposition: Standard PACU
--- NOTE | 2023-08-02 08:32 | P.BOP_ITS ---
Brief Operative Note Date of Service: 08/02/23 Pre-op diagnosis: Screening Post-op diagnosis: other (Diverticulosis) Procedure: Colonoscopy to the cecum Surgeon: Osmar Pride MD Anesthesia: MAC Was an Rotating Equipment Specialist used for this Procedure?: No Estimated blood loss (mL): 0 Pathology: none sent Condition: stable Disposition: PACU
[2023-08-02 08:47] VITALS: BP 125/86; PULSE 101; RESP 16; TEMP 36.1; O2SAT 96
[2023-08-02 09:04] LABS: Glucose, Whole Blood 145 mg/dL (60-115)
[2023-08-02 09:06] VITALS: BP 120/65; PULSE 92; RESP 18; TEMP 36.1; O2SAT 96
--- NOTE | 2023-08-02 09:11 | P.CONAN_ITS ---
[facility] Active Problems Active Problems: All Active Problems (Updated 08/02/23 @ 06:44 by Josefina Beltran RN) Carpal tunnel syndrome of left wrist (Acute) Past Medical History Medical History Hx of multiple sclerosis Spinal stenosis Osteoarthritis Diet-controlled diabetes mellitus High blood pressure Functional capacity: independent ambulation Family History Family history of problems with anesthesia: No Surgical History Surgical History History of back surgery H/O colonoscopy Hx of arthroscopy of knee Hx of dilation and curettage Hx of tonsillectomy History of carpal tunnel surgery of left wrist History of Problems with Anesthesia: No Social History Social History Patient Tobacco Use Status: Former Tobacco user Quit Date: >10 years ago Tobacco use type: Cigarette Are you DNR?: No Advance Directives: No Advance Directives Information Provided: Yes Recently lost weight without trying: No Nutrition Risks: No Nutritional Risk Patient : No Meds Allergies Allergy/AdvReac Type Severity Reaction Status Date / Time Iodinated Contrast Media Allergy Severe RASH Verified 07/29/23 12:37 [IV CONTRAST] Active Medications: Current Medications Lactated Ringer's (Lr) 1,000 mls @ 100 mls/hr IVCONT .Q10H MAINE Last Admin: 08/02/23 06:55 Dose: 100 mls/hr Sodium Biphosphate/Sodium Phosphate (Sodium Phosphate,Davis-Dibasic 133 Ml Enema) 133 ml GA ONCE PRN PRN Reason: Poor Colonoscopy Prep Results Home Medications Medication Instructions Recorded Confirmed Last Taken Type aspirin 81 mg tablet,delayed 81 mg PO DAILY 09/02/22 07/29/23 07/26/23 History release atorvastatin 10 mg tablet 10 mg PO DAILY 09/02/22 07/29/23 Unknown History celecoxib 50 mg capsule (Celebrex) 50 mg PO BID 09/02/22 07/29/23 07/26/23 History cholecalciferol (vitamin D3) 10 10 mcg PO DAILY 09/02/22 07/29/23 Unknown History mcg (400 unit) capsule lisinopril 20 mg tablet 20 mg PO DAILY 09/02/22 07/29/23 08/02/23 History multivitamin 1 tab PO DAILY 07/29/23 07/29/23 Unknown History Exam Height,Weight and Vital Signs: Height 5 ft 6.5 in Weight 80.9 kg Last Vital Signs Temp 97.0 F 08/02/23 09:06 Pulse 92 08/02/23 09:06 Resp 18 08/02/23 09:06 BP 120/65 08/02/23 09:06 Pulse Ox 96 08/02/23 09:06 O2 Del Method Room Air 08/02/23 09:06 O2 Flow Rate 6 08/02/23 08:47 Pertinent Lab Results Pertinent Lab Results: Laboratory Tests 08/02/23 08:50 POC Glucose 145 H Airway Heart: RRR Lungs: CTA Assessment and Plan Final Anesthetic Review Family History of Problems with Anesthesia: No History of Problems with Anesthesia: No ASA Class: II Final Preanesthetic Review: Meds/Allgs Chart Reviewed, Consent Obtained/Reviewed and Anes Risks/Benef Reviewed Patient Risk: Low Procedure Risk: Low Anesthetic Plan Anesthetic Plan: MAC: Disposition: Standard PACU
--- NOTE | 2023-08-02 10:13 | HO.POSTANES ---
Post Anesthesia Evaluation Post Anesthesia Evaluation Date of Service: 08/02/23 Vital Signs: Vital Signs Temp Pulse Resp BP Pulse Ox O2 Del Method O2 Flow Rate 08/02/23 09:06 97.0 F 92 18 120/65 96 Room Air 08/02/23 08:47 97 F 101 H 16 125/86 96 Nasal Cannula with ETCO2, Simple Mask 6 08/02/23 06:29 98.3 F 97 18 149/66 H 96 Room Air Anesthesia: Monitored Mental Status: Awake Pain Control: Satisfactory Nausea/Vomiting: None Hydration: Adequate Anesthesia-Related Issues: No Anes. Related Issues Comments: SaO2 has been 96%. coughing up clear mucus
--- NOTE | 2023-08-02 10:15 | OP_ITS ---
DATE OF SERVICE: 08/02/2023 SURGEON: Osmar Pride MD INDICATIONS: The patient presents for followup of colorectal cancer screening and personal history of tubular adenoma of the colon. Full consent was obtained from her for this, including risks of bleeding and perforation. PREOPERATIVE DIAGNOSIS: POSTOPERATIVE DIAGNOSIS: PROCEDURE PERFORMED: Colonoscopy to cecum. ESTIMATED BLOOD LOSS: COMPLICATIONS: ANESTHESIA: Monitored anesthesia care. ASSISTANTS: SPECIMENS: PREOPERATIVE DIAGNOSES: Colorectal cancer screening and personal history of tubular adenoma of the colon. POSTOPERATIVE DIAGNOSES: Colorectal cancer screening, personal history of tubular adenoma of the colon, diverticulosis, and internal hemorrhoids. DESCRIPTION OF PROCEDURE: The patient was placed in the left lateral decubitus position. The digital rectal exam revealed no abnormalities. The Olympus video pediatric colonoscope was then entered into the rectum and advanced easily to the cecum. Once in the cecum, I did identify normal-appearing cecal pouch with appendiceal orifice and a normal-appearing ileocecal valve. The entire cecum was well visualized including the appendiceal orifice. The cecum and ileocecal valve appeared normal. The scope was slowly withdrawn, assessing all mucosal surfaces carefully. Preparation was excellent. I did not visualize any sign of polyps, colitis, nor angiodysplasia. There was a mild amount of sigmoid diverticulosis. In the rectum, scope was retroflexed, visualizing internal hemorrhoids, but no other pathology. The rectal mucosa appeared normal. The scope was straightened and withdrawn from the patient. She tolerated the procedure well and was returned to the recovery area in stable condition. IMPRESSION: 1. Diverticulosis. 2. Internal hemorrhoids. PLAN: Given today's negative exam and her age, I do not think she would need any further screening colonoscopies in the future. She was advised to try some Metamucil for some occasional bowel movement irregularity. She was advised to resume her aspirin today. This has been discussed with her . Osmar Pride MD RMZachery/ELLIOTL / [id number]
== END 2023-08-02 09:54 | disposition home or self-care (01) ==
PROVIDERS: PCP Internal Medicine; Visit Provider Internal Medicine
PROC: 0DJD8ZZ Inspection of Lower Intestinal Tract, Via Natural or Artificial Opening Endoscopic (ICD-10-PCS; CPT 45378; principal; 2023-08-02 07:30)
DX: Z12.11 Encounter for screening for malignant neoplasm of colon (principal); Z86.010 Personal history of colon polyps; K57.30 Diverticulosis of large intestine without perforation or abscess without bleeding; K64.8 Other hemorrhoids; I10 Essential (primary) hypertension; E11.9 Type 2 diabetes mellitus without complications; M19.90 Unspecified osteoarthritis, unspecified site; Z79.82 Long term (current) use of aspirin; Z79.899 Other long term (current) drug therapy; Z87.891 Personal history of nicotine dependence
CPT/HCPCS: G0105; 82947; J2704

== ENCOUNTER 2023-10-12 12:49 | Outpatient (REF) | payer MEDICARE, SELFPAY ==
--- NOTE | ~2023-10-12 | US_ITS ---
EXAMINATION: US RETROPERITONEAL LIMITED (RENAL ONLY) CLINICAL INFORMATION: Adrenal nodule. COMPARISON: MRI lumbar spine without contrast 10/16/2022. TECHNIQUE: Real-time imaging of the kidneys. Limited visualization due to bowel gas and body habitus. FINDINGS: RIGHT KIDNEY: 12.1 x 4.0 x 4.2 cm (SAG x AP x TRV). The kidney is normal in size, contour, and echogenicity. Renal cortical thickness is normal. No hydronephrosis. Possible 6 mm right renal lower pole calculus. Limited visualization. LEFT KIDNEY: 11.6 x 4.1 x 5.2 cm (SAG x AP x TRV). The kidney is normal in size, contour, and echogenicity. Renal cortical thickness is normal. No renal calculi or hydronephrosis. 3.1 x 1.9 x 1.8 cm lateral midpole pole cyst with benign features. There is no indication for follow-up imaging. Limited visualization. US/US renal BI IMPRESSION: 1. Possible 6 mm right renal lower pole calculus. No hydronephrosis. 2. Left renal 3.1 cm lateral midpole pole cyst with benign features. There is no indication for follow-up imaging. 3. Previously reported left adrenal nodule identified on MR of 2022 is not visualized on this exam, possibly due to bowel gas.
== END 2023-10-12 12:50 | disposition home or self-care (01) ==
LOC: HO.HMGCX 12:49
PROVIDERS: PCP Internal Medicine; Visit Provider Internal Medicine
DX: E27.8 Other specified disorders of adrenal gland (principal)
CPT/HCPCS: 76775

== ENCOUNTER 2024-03-01 08:26 | Outpatient (AMB) | payer MEDICARE, SELFPAY ==
--- NOTE | 2024-03-01 08:38 | A.OFFVIS_ITS ---
Vital Signs 03/01/24 08:45 Height 5 ft 6.5 in Weight 174 lb BMI 27.7 BP 189/88 H Blood Pressure Location Rt brachial Position Sitting Pulse 96 Intake Visit Reasons: Abscess of right breast Intake Note: Patient referred by pcp Dr. Tam for abscess on Rt br. Present for wks. Patient c/o: scabby. On Cephalexin course. Optic Fibre Drawer Required: No Accompanied by: Self / Same As Patient Allergies Iodinated Contrast Media [IV CONTRAST] Allergy (Severe, Verified 03/01/24 08:43) RASH Medication List - Last Reconciled 03/01/24 by Jarrod Trevino MD aspirin 81 mg PO DAILY atorvastatin 10 mg PO DAILY celecoxib (Celebrex) 50 mg PO BID cholecalciferol (vitamin D3) 10 mcg PO DAILY lisinopril 20 mg PO DAILY multivitamin 1 tab PO DAILY HPI Comments Details: Patient presents with a soft tissue left breast abscess. This started as a sebaceous cyst which became infected and progressed. Patient was given antibiotics with limited improvement. He presents here for further evaluation. Patient has no other breast issues or complaints. In Fact she is due for mammograms next month. Chart was reviewed and patient evaluated [facility] Medical History Hx of multiple sclerosis Spinal stenosis Osteoarthritis Diet-controlled diabetes mellitus High blood pressure Surgical History History of back surgery H/O colonoscopy Hx of arthroscopy of knee Hx of dilation and curettage Hx of tonsillectomy History of carpal tunnel surgery of left wrist Social History Patient Tobacco Use Status: Former Tobacco user Tobacco use type: Cigarette Physical Exam Vital Signs: Last Vital Signs Pulse 96 03/01/24 08:45 BP 189/88 H 03/01/24 08:45 BMI result Body Mass Index 27.7 Chest Other: Bilateral breast exam noteworthy for lower inner right breast 4 x 3 cm abscess of the soft tissue. This is unrelated to the breast. Office Procedures I&D Drain Details: Risks, benefits, alternatives of incision and drainage of right breast abscess w ere reviewed with the patient included but not limited to bleeding, recurrence, numbness, pain, scarring the patient wished to proceed. All questions answered. Patient underwent 1% lidocaine and Betadine prep and uneventfully incision drainage of a large complex right breast abscess with dimensions as described above was uneventfully performed. Cultures obtained. Copious amounts of purulent material were drained. Loculations were broken up. Wound was irrigated, secured hemostasis, packed, and dressing applied. Patient tolerated procedure well. [id number] of Skin Abscess, complex All charges added?: Procedure code (CPT) selection complete Assessment & Plan Assessment & Plan (1) Abscess of right breast: Code(s): N61.1 - Abscess of the breast and nipple Category: Surgical (2) Status post incision and drainage: Code(s): Z98.890 - Other specified postprocedural states Category: Surgical Plan Patient has analgesics at home, she is to complete her antibiotic course, she will have local wound care per Bello in office, and then patient will see me as directed or p.r.n.. All questions answered. Orders: Orders Routine Culture w Gram Stain Today L02.91 - Cutaneous abscess, unspecified AMB Incision & Drainage Today N61.1 - Abscess of the breast and nipple Coding Level of Care Code New Pt Level 5 (94446) Diagnoses Abscess of right breast N61.1 Status post incision and drainage Z98.890 CPT Codes I&D Drain - Drain 2: 70355-Ljjawmiw of Skin Abscess, complex ([id number])
[2024-03-01 08:45] VITALS: BP 189/88; PULSE 96; BMI 27.7
== END 2024-03-01 09:34 | disposition home or self-care (01) ==
PROVIDERS: PCP Internal Medicine; Visit Provider Surgery
DX: N61.1 Abscess of the breast and nipple (principal); Z98.890 Other specified postprocedural states
CPT/HCPCS: 10060; 99204

== ENCOUNTER 2024-03-01 08:26 | Outpatient (REF) | payer MEDICARE, SELFPAY | END 2024-03-01 08:27 | disposition home or self-care (01) | LOC: HO.LAB 08:26 | PROVIDERS: PCP Internal Medicine; Visit Provider Surgery | DX: L02.91 Cutaneous abscess, unspecified (principal); N61.1 Abscess of the breast and nipple; Z98.890 Other specified postprocedural states | CPT/HCPCS: 10060; 87070; 87205; 99202 ==

== ENCOUNTER → 2024-03-02 11:40 | Outpatient (BNVA) | payer MEDICARE, SELFPAY | PROVIDERS: PCP Internal Medicine; Visit Provider Surgery ==

== ENCOUNTER 2024-03-03 17:55 | Outpatient (REF) | payer MEDICARE, SELFPAY ==
--- NOTE | ~2024-03-03 | MR_ITS ---
EXAMINATION: MR BRAIN WITHOUT CONTRAST CLINICAL INFORMATION: Multiple sclerosis COMPARISON: MRI brain on 02/18/2023 TECHNIQUE: MRI of the brain was obtained using routine sequences without contrast. FINDINGS: Ventricles, sulci and cisterns are mildly dilated. Multiple focal and patchy T2 hyperintense lesions are seen in bilateral frontal and parietal subcortical and deep white matters. T2 hyperintense lesions are present in the rostrum and splenium of corpus callosum. No focal brainstem or cerebellar lesions with abnormal signal can be seen. Diffusion weighted images show no abnormal regional decrease in diffusion. Normal flow voids of major intracerebral blood vessels are seen in the visualized portion. The pituitary gland is normal. Optic chiasm is not displaced. Cerebellar tonsils position is normal. A round T2 hyperintense mucosal lesion is seen attached to the medial wall of right maxillary sinus measuring 1.0 cm in diameter. MR/MR head/brain wo con IMPRESSION: 1. No significant interval change in size and number of lesions in bilateral frontal and parietal white matters and corpus callosum. Findings are consistent with multiple sclerosis. 2. No acute intracranial bleed, mass effect or midline shift. 3. No evidence of acute infarction. 4. Unchanged Right maxillary sinus mucous retention cyst or mucosal polyp. Electronically signed by: Jamarcus Martinez MD 03/29/2024 11:38 AM EDT
== END 2024-03-03 17:56 | disposition home or self-care (01) ==
LOC: HO.MRI 17:55
PROVIDERS: PCP Internal Medicine; Visit Provider Registered Nurse
DX: G35 Multiple sclerosis (principal)
CPT/HCPCS: 70551

== ENCOUNTER → 2024-03-06 10:36 | Outpatient (BNVA) | payer MEDICARE, SELFPAY | PROVIDERS: PCP Internal Medicine; Visit Provider Surgery ==

== ENCOUNTER 2024-05-01 12:42 | Outpatient (AMB) | payer MEDICARE, SELFPAY ==
--- NOTE | 2024-05-01 12:43 | MHC.OFFVIS ---
Vital Signs 05/01/24 12:49 Height 5 ft 6.5 in Weight 174 lb BMI 27.7 Intake Visit Reasons: 2 month follow up, following abscess right breast Intake Note: Patient here for 2m follow up I&D abscess on rt br. Reports site healed well. Patient c/o: site looks discolored. Denies pain, itch. International Accounting Manager Required: No Accompanied by: Self / Same As Patient Allergies Iodinated Contrast Media [IV CONTRAST] Allergy (Severe, Verified 05/01/24 12:49) RASH Medication List - Last Reconciled 05/01/24 by Jarrod Trevino MD aspirin 81 mg PO DAILY atorvastatin 10 mg PO DAILY celecoxib (Celebrex) 50 mg PO BID cholecalciferol (vitamin D3) 10 mcg PO DAILY lisinopril 20 mg PO DAILY multivitamin 1 tab PO DAILY HPI Comments Details: Patient presents for follow-up of right breast carbuncle/abscess. She has complete resolution of her symptoms. Wound is healed uneventfully. [facility] Medical History Hx of multiple sclerosis Spinal stenosis Osteoarthritis Diet-controlled diabetes mellitus High blood pressure Surgical History History of back surgery H/O colonoscopy Hx of arthroscopy of knee Hx of dilation and curettage Hx of tonsillectomy History of carpal tunnel surgery of left wrist Social History Patient Tobacco Use Status: Former Tobacco user Tobacco use type: Cigarette Physical Exam Vital Signs: BMI result Body Mass Index 27.7 Chest Other: Right breast exam demonstrate completely healed lower inner quadrant carbuncle of left breast. Assessment & Plan Assessment & Plan (1) Carbuncle: Code(s): L02.93 - Carbuncle, unspecified Category: Surgical (2) Screening mammogram for breast cancer: Code(s): Z12.31 - Encounter for screening mammogram for malignant neoplasm of breast Category: Surgical Plan Patient was due to have mammogram when this inflammatory process began and it has been held off. I recommend she wait another 2-3 months before repeating the mammogram because this may show up as artifact or suspicious area. She will see me in 3 months time proceeded by bilateral mammograms or p.r.n.. She is encouraged to do self-breast exams periodically. All questions answered. Orders: Orders MM screening mammo BI 3 Months Z12.31 - Encounter for screening mammogram for malignant neoplasm of breast Coding Level of Care Code Est Pt Level 4 (09541) Diagnoses Carbuncle L02.93 Screening mammogram for breast cancer Z12.31
[2024-05-01 12:49] VITALS: BMI 27.7
== END 2024-05-01 13:04 | disposition home or self-care (01) ==
PROVIDERS: PCP Internal Medicine; Visit Provider Surgery
DX: L02.93 Carbuncle, unspecified (principal); Z12.31 Encounter for screening mammogram for malignant neoplasm of breast
CPT/HCPCS: 99214

== ENCOUNTER → 2024-05-01 12:42 | Outpatient (BNVA) | payer MEDICARE, SELFPAY | PROVIDERS: PCP Internal Medicine; Visit Provider Surgery | DX: L02.93 Carbuncle, unspecified (principal); Z12.31 Encounter for screening mammogram for malignant neoplasm of breast | CPT/HCPCS: 99212 ==

== ENCOUNTER 2024-05-02 08:16 | Outpatient (REF) | payer MEDICARE, SELFPAY ==
[2024-05-02 11:27] LABS: MANUAL DIFF FLAG NO
[2024-05-02 11:30] LABS: Basophils Percent Auto 0.5 % (0-2); Eosinophils Absolute Auto 0.1 X10*3/uL (0.0-0.4); Eosinophils Percent Auto 1.4 % (0-4); Hematocrit 48.4 % (37.0-47.0); Hemoglobin 15.8 g/dl (12.0-16.0); Imm Gran Abs Auto 0.01 X10*3/uL (0.00-0.03); Imm Gran Pct Auto 0.1 % (0.0-0.4); Lymphocytes Absolute Auto 2.7 X10*3/uL (1.2-4.9); Lymphocytes Percent Auto 34.4 % (20-40); Mean Corpuscular HGB Conc 32.6 g/dl (31.0-35.0); Mean Corpuscular Hemoglobin 30.5 pg (27.0-33.0); Mean Corpuscular Volume 93.4 fL (80.0-98.0); Mean Platelet Volume 10.7 fL (9.4-12.3); Monocytes Absolute Auto 0.6 X10*3/uL (0.1-1.2); Monocytes Percent Auto 7.2 % (2-11); Neutrophils Absolute Auto 4.5 x10*3/uL (2.0-8.3); Neutrophils Percent Auto 56.4 % (45-73); Platelet Count 258 X10*3/uL (160-400); Red Blood Count 5.18 X10*6/uL (4.20-5.50); Red Cell Distribution Width 12.5 % (11.0-16.0); White Blood Count 7.9 X10*3/uL (4.8-10.8)
[2024-05-02 12:02] LABS: Alanine Aminotransferase 25 U/L (0-31); Albumin Level 4.3 g/dL (3.5-5.0); Alkaline Phosphatase 89 U/L (39-117); Anion Gap 14 (12-20); Aspartate Amino Transferase 28 U/L (5-31); Bilirubin Total 0.7 mg/dL (0.0-1.0); Blood Urea Nitrogen 16 mg/dL (9-16); Calcium 9.8 mg/dL (8.4-10.2); Carbon Dioxide 27 mmol/L (22-29); Chloride 104 mmol/L (96-108); Cholesterol 158 mg/dL (<200); Estimated Glomerular Filt Rate > 60; Glucose Fasting 153 mg/dL (60-99); HDL Cholesterol 54 mg/dL (>40); LDL Cholesterol Calculated 81 mg/dL (<100); Potassium 4.5 mmol/L (3.3-5.1); Sodium 140 mmol/L (135-145); Thyroid Stimulating Hormone 0.88 uIU/mL (0.32-4.0); Total Protein 7.2 g/dL (6.5-8.0); Triglycerides 117 mg/dL (<150); Vitamin D 25-OH Total 86.3 ng/mL (>30)
[2024-05-02 12:04] LABS: Estimated Average Glucose 137 mg/dL; Hemoglobin A1c % 6.4 % (<6.0); Total Hemoglobin (HGBA1C) 3952.9541 umol/L
== END 2024-05-02 08:17 | disposition home or self-care (01) ==
LOC: HO.HMGCLDS 08:16
PROVIDERS: PCP Internal Medicine; Visit Provider Internal Medicine
DX: I10 Essential (primary) hypertension (principal); E78.00 Pure hypercholesterolemia, unspecified; E55.9 Vitamin D deficiency, unspecified; R73.02 Impaired glucose tolerance (oral); E27.8 Other specified disorders of adrenal gland; M48.062 Spinal stenosis, lumbar region with neurogenic claudication
CPT/HCPCS: 36415; 80053; 80061; 82306; 83036; 84443; 85025

== ENCOUNTER 2024-08-09 13:00 | Outpatient (RCR) | payer MEDICARE, SELFPAY ==
--- NOTE | 2024-12-08 08:27 | MHC.PT.DC ---
[facility] [place] Office [place] Office [place] Office [address] Bello Robin [address] [phone] F: [phone] F: [phone] F: [phone] F: [phone] Physical Therapy Discharge Report Diagnosis: multiple sclerosis Date of Surgery: Date of Evaluation: 06/30/24 Date of Discharge: Treatments to Date: 9 Cancellations to Date: No Shows to Date: Discharge Status: Improved Function Independent with HEP Discharge Summary: 08/09; Pt I with HEP. Pt L.E strength 4. Pt balance SLS 2 sec. PT has imrpved in function hung cloths on line. Pt DC with exs. 08/02; Pt fatigued R>L L.E with hip exs. DC STS and worked more with step due to the plopping with sitting may aggravate her back issue. Pt has 2 remaining visits fabián. 07/26; Pt performed hip exs with no weight due to pain and fatigued quickly. Resume NV if pt feels less L/S pain. Pt challenged with balance exs. Pt felt she had a MS flare up.07/19; Pt working with HEP. Pt R>L L.E weakness. SBA with balance exs. 07/14/24: pt progressed with balance ex. fatigued. notes she has been doing HEP at home with thoughtfulness around balance ex. encouraged her to assure safety during therex. 07/11; Pt required min assist with balance exs. Pt was frustrated she isn't progressing and had a set back discussed that happens often. NV balance exs 07/07/24: pt progressing well overall. improved activity tolerance. encouraged pt in using LE for STS. added 2# to standing hip ex. reduced table based ex. 07/05; Pt fatigued quickly with hip exs. Pt needed U.E assist with STS transfer. NV initiate balance exs. Patient is a 78 year old R handed female who presents with s/s consistent with multiple sclerosis. She is retired but likes to stay busy around the home and in the community. Patient past medical history includes lumbar fusion. Current impairments include pain, balance, ROM, strength, activity tolerance and functional mobility. Functional limitations include decreased ability to walk, transfer, stand, negotiate stairs, and perform standing activities and chores. Patient is motivated with good rehab potential. Skilled PT will address impairments and functional limitations in order to achieve goals. Electronically signed by: Medardo Bangura, PT Please sign and return to therapist. Thank you for your referral.
== END 2024-12-08 08:28 | disposition home or self-care (01) ==
LOC: HO.PTCHIC 13:00
PROVIDERS: PCP Internal Medicine; Visit Provider Registered Nurse
DX: G35 Multiple sclerosis (principal)
CPT/HCPCS: 97110; 97112; 97163

== ENCOUNTER 2024-09-04 08:06 | Outpatient (REF) | payer MEDICARE, SELFPAY ==
--- OUTSIDE RECORDS SUMMARY | 2024-09-04 08:19 | XMS_ITS | Patient Health Record ---
Author Organization [facility] [place] Address [address] [place] [address] Care Team Providers Care Sail Maker Name Role Phone Osmar Tam MD Primary Care Provider Unavail able Chance Long Unavailable [phone] Allergies Allergen (clinical drug ingredient) Drug/Non Drug Allergy documented on EMR Reaction Allergy Type Onset Date Status IVP dye (uncoded) Unknown Allergy Ac tive Reason For Referral No Information Medications Medication SIG (Take, Route, Frequency, Duration) Notes Start Date End Date Status Ciclopirox Olamine 0.77 % 1 application to affected area Externally Twice a day to effected areas on feet for 30 days 04/23/2021 Active Tylenol 8 Hour Arthritis Pain 650 MG 2 tablets as needed Orally every 8 hrs Active Celecoxib 200 MG 1 capsule with food Orally Once a day for 30 day(s) Active Multi Vitamin - 1 tablet Orally Once a day for 30 day(s) Active Vitamin D 25 MCG (1000 UT) 1 tablet Orally Once a day for 30 day(s) Active Atorvastatin Calcium 10 MG 1 tablet Orally Once a day for 30 day(s) Active Aspirin 81 MG 1 tablet Orally Once a day for 30 day(s) Active Lisinopril 20 MG 1 tablet Orally Once a day for 30 day(s) Active Tylenol 8 Hour 650 MG 2 tablets as neede d Orally every 8 hrs Active Aspirin 81 MG 1 tablet Orally Once a day for 30 day(s) Active Atorvastatin Calcium 10 MG 1 tablet Orally Once a day for 30 day(s) Active Lisinopril 20 MG 1 tablet Orally Once a day for 30 day(s) Active Celecoxib 200 MG 1 capsule with food Orally Once a day for 30 day(s) Not-Taking Clotrimazole 1 % 1 application Externally Twice a day for 30 days 04/28/2021 Active Cortisone Cream Active Multivitamin Active Vitamin D 25 MCG (1000 UT) 1 tablet Orally Once a day for 30 day(s) Active Immunizations Vaccine Route Administration Date Status Comme nts COVID-19 Moderna Vaccine Unknown 08/30/2020 Administere d 1ST DOSE: 08/02/2020 Social History Tobacco Use: Social History Observation Description Date Details (start date - stop date) Former Smoker NA - NA Tobacco Use/Smoking Question Answer Notes Are you a: former smoker Additional Findings: Tobacco Non-User Current no n-smoker Alcohol Screen Question Answer Notes Did you have a drink containing alcohol in the p ast year? No Points 0 Interpretation Negative Tobacco use other than smoking: Question Answer Notes Are you an other tobacco user? No Plan Of Treatment No Information Insurance Providers Payer Name Payer Address Payer Phone Subscriber Number Group Number Insured Name Patient Relationship to Insured Coverage Start Date Coverage End Date Medicare National [employer] [address] [place] [address] [id number] Deanna Howard Self - patient is the insured [facility] 65 Medicare Preferred [address] [place] [address] [phone] [id number] Deanna Howard Self - patient is the insured Medical (General) History Medical History History ICD Code Hypertension Hypercholesterolemia Vitamin D deficiency osteoarthritis Back pain Menopause Glucose intolerance Cystitis with microscopic hematuria Varicella Zoster Surgical History Surgery Date(Month/Year) Tonsillectomy 1961 Cataract Surgery 2019 Arthrolopy Surgery and Knee 2016
--- OUTSIDE RECORDS SUMMARY | 2024-09-04 08:19 | XMS_ITS | Patient Health Record ---
Author Organization [facility] Address [address] [place] [id number] Care Team Providers Care Tool And Die Repairer Name Role Phone Yonatan (RETIRED) Osmar HA Primary Care Provid er Unavailable Osmar Pride Unavailable [phone] Allergies Allergen (clinical drug ingredient) Drug/Non Drug Allergy documented on EMR Reaction Allergy Type Onset Date Status IVP dye (uncoded) Unknown Allergy Ac tive Reason For Referral No Information Medications Medication SIG (Take, Route, Frequency, Duration) Notes Start Date End Date Status Vitamin D3 25 MCG (1000 UT) 1 tablet Ora lly Once a day for 30 day(s) Active Lisinopril 20 MG 1 tablet Orally Once a day Active Aspirin 81 MG 1 tablet Orally Once a day Active Multivitamins - 1 tablet Orally once a day Active Celecoxib 200 MG Oral for 90 A ctive Atorvastatin Calcium 10 MG Oral for 90 Active Social History Alcohol Screen Question Answer Notes Did you have a drink containing alcohol in the p ast year? No Points 0 Interpretation Negative Section Notes: Nonsmoker > 30 yrs ago; no a lcohol Nonsmoker > 30 yrs ago; no a lcohol Nonsmoker > 30 yrs ago; no a lcohol Problems Problem Type SNOMED Code ICD Code Onset Dates Problem Status W/U Status Risk Notes Problem 938148807 Colon cancer screening (Z12.11) Active confirmed Problem 158649170 Encounter for screening for malignant neoplasm of colon (Z12.11) Active confirmed Problem 367060834 History of adenomatous polyp of colon (Z86.010) Active confirmed Problem History of polyp of colon (situation) (160764784) Personal history of colonic polyps (Z86.010) Active confirmed Problem 01892549 Change in bowel habits (R19.4) Active confirmed Problem Diverticular disease of colon (293985357) Diverticulosis of large intestine without perforation or abscess without bleeding (K57.30) Active confirmed Problem 884976404 Preprocedural examination (Z01.818) Active confirmed Problem 504511984 Long-term use of aspirin therapy (Z79.82) Active confirmed Plan Of Treatment Future Test Test Name Order Date COLONOSCOPY 06/15/2012 COLONOSCOPY 08/31/2017 COLONOSCOPY 03/23/2023 Insurance Providers Payer Name Payer Address Payer Phone Subscriber Number Group Number Insured Name Patient Relationship to Insured Coverage Start Date Coverage End Date MEDICARE OF [place] [address] [place] [address] [phone] [id number] ANDRA REY Self - patient is the insured [employer] CLAIMS [address] [place] [address] [phone] [id number] ANDRA REY Self - patient is the insured Medical (General) History Medical History History ICD Code HTN Diet-controlled DM Colonoscopy in 10/2001-neg. e xcept for hyperplastic polyp, sigmoid diverticulosis, and internal hemorrhoids. Colonoscopy in 05/2012--small tubular aenoma removed Denies NE,CVA,Lung disease,renal disease Osteoarthritis Spinal stenosis Colonoscopy in 09/2017 with a small tubul ar adenoma removed Carpal tunnel syndrome and question of M S on a brain MRI-sees Dr. Helms Surgical History Surgery Date(Month/Year) Tonsils D&C Right knee arthoscopic Planned lower back surgery at the end of 03/2023 at [facility]
--- OUTSIDE RECORDS SUMMARY | 2024-09-04 08:19 | XMS_ITS ---
Author Organization [facility] Address [address] [place] [phone] Care Team Providers Care Pace Analyst Name Role Phone Yonatan (RETIRED) Osmar HA Primary Care Provid er Unavailable Osmar Pride Unavailable [phone] REASON FOR VISIT Colon next week Encounters Encounter Location Date Provider Diagnosis [facility] [address] [place] [phone] 07/26/2023 Osmar Pride Plan Of Treatment No Information Progress Notes * ANDRA REYDOB:1945 ( 77 yo F)Acc No.[id number]:07/26/2023 Patient:?ANDRA REY :1945???Age:77 Y???Sex:Female Address:[address] [place] [address] [place] [address] * true * Date:? Generated for Bessie lopez/Jerica/eTransmitting on:?09/04/2024 08:18 AM EDT
--- OUTSIDE RECORDS SUMMARY | 2024-09-04 08:19 | XMS_ITS ---
Author Organization [facility] Address [address] [place] [id number] Care Team Providers Care Inorganic Chemist Name Role Phone Yonatan (RETIRED) Osmar HA Primary Care Provid er Unavailable Osmar Pride Unavailable [phone] Allergies Allergen (clinical drug ingredient) Drug/Non Drug Allergy documented on EMR Reaction Allergy Type Onset Date Status IVP dye (uncoded) Unknown Allergy Ac tive REASON FOR VISIT Patient presents today for a SCREENING COLON Medications Medication SIG (Take, Route, Frequency, Duration) Notes Start Date End Date Status Lisinopril 20 MG 1 tablet Orally Once a day Active Aspirin 81 MG 1 tablet Orally Once a day Active Multivitamins - 1 tablet Orally once a day Active Celecoxib 200 MG Oral for 90 A ctive Atorvastatin Calcium 10 MG Oral for 90 Active Vitamin D3 25 MCG (1000 UT) 1 tablet Ora lly Once a day for 30 day(s) Active Social History Alcohol Screen Question Answer Notes Did you have a drink containing alcohol in the p ast year? No Points 0 Interpretation Negative Section Notes: Nonsmoker > 30 yrs ago; no a lcohol Problems Problem Type SNOMED Code ICD Code Onset Dates Problem Status W/U Status Risk Notes Problem 120645239 Colon cancer screening (Z12.11) Active confirmed Problem 94630475 Change in bowel habits (R19.4) Active confirmed Vital Signs Temperature 97.9 degrees Fahrenheit 03/23/20 23 Blood pressure systolic 00 mm Hg 03/23/20 23 Blood pressure diastolic 00 mm Hg 023 Height 66.50 in 03/23/2023 Weight 178 lbs 03/23/2023 BMI 28.30 kg/m2 03/23/2023 Encounters Encounter Location Date Provider Diagnosis [facility] [address] [place] [address] 03/23/2023 Osmar Pride Colon cancer screeni ng Z12.11 ; Change in bowel habits R19.4 and History of adenomatous polyp of colon Z86.010 Assessments Encounter Date Diagnosis (ICD Code) Assessment Notes Treatment Notes Treatment Clinical Notes Section Notes 03/23/2023 Colon cancer screening (ICD-10 - Z12.11) Stop aspirin for 1 week before the colonoscopy Overall, Andra appears well. Her current GI symptoms do not seem worrisome, but nonetheless are somewhat problematic for her with the bowel movement irregularity and occasional urgency with incontinence. I did recommend she start a trial of some Metamucil fiber supplement daily with a glass of water to see if that might help improve her bowel regimen. I advised her that she could also try some Imodium for loose or watery stools as needed. I shall schedule her for a followup colonoscopy for further screening given her previous colonoscopies revealing tubular adenomas in 2012 and in 2017. We did review the rationale for this in regard to colon cancer prevention. Full consent was obtained from her for the colonoscopy, including risks of bleeding and perforation. The procedure will be done with monitored anesthesia care. She was advised to stop aspirin for one week before the procedure. Given her upcoming back surgery at the end of March I will plan to schedule this for some time in July or July of 2023 so as to hopefully allow her to recuperate from the back surgery. Andra was comfortable with this plan. Thank you again for allowing me to participate in Andra's care. I shall continue to keep you advised of her progress. 03/23/2023 Change in bowel habits (ICD-10 - R19.4) You can add some Metamucil fiber 2 pills once a day with a glass of water to help improve the BM's Overall, Andra appears well. Her current GI symptoms do not seem worrisome, but nonetheless are somewhat problematic for her with the bowel movement irregularity and occasional urgency with incontinence. I did recommend she start a trial of some Metamucil fiber supplement daily with a glass of water to see if that might help improve her bowel regimen. I advised her that she could also try some Imodium for loose or watery stools as needed. I shall schedule her for a followup colonoscopy for further screening given her previous colonoscopies revealing tubular adenomas in 2012 and in 2017. We did review the rationale for this in regard to colon cancer prevention. Full consent was obtained from her for the colonoscopy, including risks of bleeding and perforation. The procedure will be done with monitored anesthesia care. She was advised to stop aspirin for one week before the procedure. Given her upcoming back surgery at the end of March I will plan to schedule this for some time in July or July of 2023 so as to hopefully allow her to recuperate from the back surgery. Andra was comfortable with this plan. Thank you again for allowing me to participate in Andra's care. I shall continue to keep you advised of her progress. 03/23/2023 History of adenomatous polyp of colon (ICD-10 - Z86.010) Overall, Andra appears well. Her current GI symptoms do not seem worrisome, but nonetheless are somewhat problematic for her with the bowel movement irregularity and occasional urgency with incontinence. I did recommend she start a trial of some Metamucil fiber supplement daily with a glass of water to see if that might help improve her bowel regimen. I advised her that she could also try some Imodium for loose or watery stools as needed. I shall schedule her for a followup colonoscopy for further screening given her previous colonoscopies revealing tubular adenomas in 2012 and in 2017. We did review the rationale for this in regard to colon cancer prevention. Full consent was obtained from her for the colonoscopy, including risks of bleeding and perforation. The procedure will be done with monitored anesthesia care. She was advised to stop aspirin for one week before the procedure. Given her upcoming back surgery at the end of March I will plan to schedule this for some time in July or July of 2023 so as to hopefully allow her to recuperate from the back surgery. Andra was comfortable with this plan. Thank you again for allowing me to participate in Andra's care. I shall continue to keep you advised of her progress. Plan Of Treatment Treatment Notes Assessment Notes Colon cancer screening Stop aspirin for 1 week before the colonoscopy Change in bowel habits You can add some Metamucil fiber 2 pills once a day with a glass of water to help improve the BM's Future Test Test Name Order Date COLONOSCOPY 03/23/2023 Next Appt Details Follow Up: prn, Reason: Progress Notes * ANDRA REYSHAHNAZ:1945 ( 77 yo F)Acc No.[id number]:03/23/2023 Progress Notes Patient:ANDRA GOODRICH Provider:?Osmar Pride MD :1945???Age:77 Y???Sex:Female D ate:03/23/2023 Address:[address] [place] [address] [id number] Pcp:Osmar Tam, DO Subjective: * Chief Complaints: * ???Patient presents today fo r a SCREENING COLON * HPI: ???incontinence:? I saw Andra in consultation today for evaluation of some change in bowel habits, her personal history of tubular adenomas of the colon, and need for colorectal cancer screening. ?I last saw Andra in September of 2017, at which time she underwent a followup screening colonoscopy with removal of a small tubular adenoma. She currently feels well from a GI standpoint, although does describe occasional episodes of some looser than usual bowel movements and rare episodes of urgency with incontinence. She denies any hematochezia nor melena. Her bowel movements are otherwise fairly regular. She enjoys a good appetite, without any significant heartburn or dysphagia. She denies abdominal pain, jaundice, nor unintentional weight loss. She denies any known family history of colon cancer, inflammatory bowel disease, nor celiac disease. ?Laboratories from earlier this month reveal normal chemistries and renal function, normal LFTs, and a normal CBC. * ROS:?General/Constitutional:?Change in appetite?denies.?Chills?denies.?Fatigue?denies.?Ophthalmologic:?Patient denies? Negative..?ENT:?Patient denies?Negative..?Respiratory:?Patient denies?No coughing/hemoptysis..?Cardiovascular:?Patient denies? No chest pain/orthopnea..?Gastrointestinal:?Comments?See HPI for details.?Genitourinary:?Patient denies? No dysuria/hematuria..?Musculoskeletal:?Patient denies?Arhtritis.?Skin:?Patient denies?No rash/pruritus..?Neurologic:?Patient denies? No headaches/seizures..?Psychiatric:?Patient denies?Negative..? * Medical History:? * Surgical History:?Tonsils D& C Right knee arthoscopic Planned lower back surgery at the end of 03/2023 at [facility] * Hospitalization/Major Diagno stic Procedure:? * Family History:?Father: dece ased, stroke, diagnosed with HTN (hypertension), Diabetes.?Mother: , diagnosed with Diabetes, HTN (hypertension).? Denies family hx. of colorectal cancer, IBD, nor celiac disease. * Social History:?Tobacco Use:?Tobacco Use/Smoking?Are you a: former smoker , How long has it been since you last smoked?: > 10 years.?Drugs/Alcohol:?Alcohol Screen?Did you have a drink containing alcohol in the past year??No,?Points?0,?Interpretation?Negative.?Miscellaneous:?Occupation: retired. ???Nonsmoker >30 yrs ago; no alcohol. * Medications:?TakingVitamin D 3 25 MCG (1000 UT) Tablet 1 tablet Orally Once a dayLisinopril 20 MG Tablet 1 tablet Orally Once a dayAspirin 81 MG Tablet Chewable 1 tablet Orally Once a dayMultivitamins - Capsule 1 tablet Orally once a dayCelecoxib 200 MG Capsule Oral Atorvastatin Calcium 10 MG Tablet Oral Taking Vitamin D3 25 MCG (1000 UT) Tablet 1 tablet Orally Once a dayTaking Lisinopril 20 MG Tablet 1 tablet Orally Once a dayTaking Aspirin 81 MG Tablet Chewable 1 tablet Orally Once a dayTaking Multivitamins - Capsule 1 tablet Orally once a dayTaking Celecoxib 200 MG Capsule Oral Taking Atorvastatin Calcium 10 MG Tablet Oral DiscontinuedVitamin D 1000 UNIT Tablet 1 tablet Orally Once a dayMedication List reviewed and reconciled with the patientDiscontinued Vitamin D 1000 UNIT Tablet 1 tablet Orally Once a dayMedication List reviewed and reconciled with the patient * Allergies:?IVP dyeyes[Allerg ies Verified] Objective: * Vitals:?Wt: 178 lbs, Ht: 66. 50 in, BMI:28.30 Index, BP: 00/00 mm Hg, Temp: 97.9. * Examination: ???General Examination: ?GENERAL APPEARANCE:?pleasant, well nourished, well developed, in no acute distress.?EYES:?sclera non-icteric.?ORAL CAVITY:?mucosa moist.?NECK/THYROID:?no cervical lymphadenopathy, neck supple.?SKIN:?nonjaundiced, no spider angiomata..?HEART:?S1, S2 normal.?LUNGS:?clear to auscultation bilaterally.?ABDOMEN:?normal bowel sounds, no guarding or rigidity, no hepatosplenomegaly, no masses palpable, soft, nontender, nondistended..?EXTREMITIES:?no edema.?NEUROLOGIC:?alert and oriented.? Assessment: * Assessment: 1.?Change in bowel habits - R19.4 (Primary)?2.?Colon cancer screening - Z12.11?3.?History of adenomatous polyp of colon - Z86.010? Overall, Andra appears well. Her current GI symptoms do not seem worrisome, but nonetheless are somewhat problematic for her with the bowel movement irregularity and occasional urgency with incontinence. I did recommend she start a trial of some Metamucil fiber supplement daily with a glass of water to see if that might help improve her bowel regimen. I advised her that she could also try some Imodium for loose or watery stools as needed. I shall schedule her for a followup colonoscopy for further screening given her previous colonoscopies revealing tubular adenomas in 2013 and in 2018. We did review the rationale for this in regard to colon cancer prevention. Full consent was obtained from her for the colonoscopy, including risks of bleeding and perforation. The procedure will be done with monitored anesthesia care. She was advised to stop aspirin for one week before the procedure. Given her upcoming back surgery at the end of March I will plan to schedule this for some time in July or July of 2023 so as to hopefully allow her to recuperate from the back surgery. Andra was comfortable with this plan. Thank you again for allowing me to participate in Andra's care. I shall continue to keep you advised of her progress. Plan: * Treatment: 2.?Colon cancer screening?Procedure: COLONOSCOPY (Ordered for 03/23/2023) Notes: Stop aspirin for 1 week before the colonoscopy.??3.?History of adenomatous polyp of colon?Procedure: COLONOSCOPY (Ordered for 03/23/2023)* with MACsched for 08/02/23 at 7:30 ammiralax * Procedure Codes:?1036F TOBAC CO [id number] BP SCR NOT PRFRM REC REASON NOS * Preventive Medicine:? ??Counseling:?Care goal follow-up plan:?Above Normal BMI Follow-up?Giving encouragement to exercise,?BMI management provided?Yes.? ??Urinary Incontinence:?Urinary Incontinence?Assessment:?Absent,?Plan of care documented:?No, reason not specified.? * Follow Up:?prn * * Sign off status: Completed true * Provider:?Osmar Pride MD Date:? 023 Generated for Bessie lopez/Jerica/Robbieitting on:?09/04/2024 08:19 AM EDT History and Physical Notes * HPI (History of Present Illness) Category Sub-Category Detail Notes Category Not es incontinence I saw Andra in consultation today for evaluation of some change in bowel habits, her personal history of tubular adenomas of the colon, and need for colorectal cancer screening. I last saw Andra in September of 2017, at which time she underwent a followup screening colonoscopy with removal of a small tubular adenoma. She currently feels well from a GI standpoint, although does describe occasional episodes of some looser than usual bowel movements and rare episodes of urgency with incontinence. She denies any hematochezia nor melena. Her bowel movements are otherwise fairly regular. She enjoys a good appetite, without any significant heartburn or dysphagia. She denies abdominal pain, jaundice, nor unintentional weight loss. She denies any known family history of colon cancer, inflammatory bowel disease, nor celiac disease. Laboratories from earlier this month reveal normal chemistries and renal function, normal LFTs, and a normal CBC. Examination Category Sub-Category Detail Notes Category Not es General Examination GENERAL APPEARANCE: pleasant , well nourished, well developed, in no acute distress EYES: sclera non-icteric NECK/THYROID: no cervical lymphade nopathy, neck supple HEART: S1, S2 normal LUNGS: clear to auscultatio n bilaterally ABDOMEN: normal bowel sounds, no guarding or rigidity, no hepatosplenomegaly, no masses palpable, soft, nontender, nondistended. NEUROLOGIC: alert and oriented SKIN: nonjaundiced, no spi sanjay angiomata. EXTREMITIES: no edema ORAL CAVITY: mucosa moist
--- OUTSIDE RECORDS SUMMARY | 2024-09-04 08:19 | XMS_ITS ---
Author Organization [facility] Address [address] [place] [address] Care Team Providers Care Supervising Bailiff Name Role Phone Yonatan (RETIRED) Osmar HA Primary Care Provid er Unavailable Osmar Pride Unavailable [phone] REASON FOR VISIT screening,hx polyps Problems Problem Type SNOMED Code ICD Code Onset Dates Problem Status W/U Status Risk Notes Problem History of polyp of colon (situation) (996933739) Personal history of colonic polyps (Z86.010) Active confirmed Problem Diverticular disease of colon (687841411) Diverticulosis of large intestine without perforation or abscess without bleeding (K57.30) Active confirmed Encounters Encounter Location Date Provider [place] [facility] [place] [address] [place] [phone] 08/02/2023 Osmar Pride Encounter for scre ening colonoscopy Z12.11 ; Personal history of colonic polyps Z86.010 ; Diverticulosis of large intestine without perforation or abscess without bleeding K57.30 and Other hemorrhoids K64.8 Assessments Encounter Date Diagnosis (ICD Code) Assessment Notes Treatment Notes Treatment Clinical Notes Section Notes 08/02/2023 Encounter for screening colonoscopy (ICD-10 - Z12.11) 08/02/2023 Personal history of colonic polyps (ICD-10 - Z86.010) 08/02/2023 Diverticulosis of large intestine without perforation or abscess without bleeding (ICD-10 - K57.30) 08/02/2023 Other hemorrhoids (ICD-10 - K64.8) Plan Of Treatment No Information Progress Notes * ANDRA REYDOB:1945 ( 78 yo F)Acc No.[id number]:08/02/2023 COLON WITH MAC Patient:?CANDIDO, ANDRA Provider:?Osmar Pride MD :1945???Age:77 Y???Sex:Female D ate:08/02/2023 Address:[address] [place] [address] [id number] Pcp:Osmar Tam (RETIRE D), DO Subjective: * Chief Complaints: * ???1. Screening,hx polyps. * Medical History:? Objective: * Vitals:? Assessment: * Assessment: 1.?Encounter for screening c olonoscopy - Z12.11 (Primary)???2.?Personal history of colonic polyps - Z86.010???3.?Diverticulosis of large intestine without perforation or abscess without bleeding - K57.30???4.?Other hemorrhoids - K64.8??? Plan: * Treatment: * Procedure Codes:?G0105 COLOR EC CANCR SCR; COLNSCPY HI RISK, 0529F INTRVL 3+YRS PTS CLNSCP DOCD, 0528F RCMND FLW-UP 10 YRS DOCD, Modifiers: 1P * * The named appointment provid er may or may not be the originator of this progress note, and it is not deemed complete until electronically signed by the appointment provider. Sign off status: Pending * Provider:?Osmar Pride MD Date:? 024 Generated for Bessie lopez/Jerica/eTransmitting on:?09/04/2024 08:19 AM EDT
[2024-09-04 10:28] LABS: MANUAL DIFF FLAG NO
[2024-09-04 10:47] LABS: Basophils Absolute Auto 0.1 X10*3/uL (0.0-0.2); Basophils Percent Auto 0.7 % (0-2); Eosinophils Absolute Auto 0.2 X10*3/uL (0.0-0.4); Eosinophils Percent Auto 2.2 % (0-4); Hematocrit 45.9 % (37.0-47.0); Hemoglobin 14.8 g/dl (12.0-16.0); Imm Gran Abs Auto 0.01 X10*3/uL (0.00-0.03); Imm Gran Pct Auto 0.1 % (0.0-0.4); Lymphocytes Absolute Auto 2.7 X10*3/uL (1.2-4.9); Lymphocytes Percent Auto 39.9 % (20-40); Mean Corpuscular HGB Conc 32.2 g/dl (31.0-35.0); Mean Corpuscular Hemoglobin 30.1 pg (27.0-33.0); Mean Corpuscular Volume 93.5 fL (80.0-98.0); Mean Platelet Volume 10.7 fL (9.4-12.3); Monocytes Absolute Auto 0.6 X10*3/uL (0.1-1.2); Monocytes Percent Auto 9.1 % (2-11); Neutrophils Absolute Auto 3.2 x10*3/uL (2.0-8.3); Platelet Count 263 X10*3/uL (160-400); Red Blood Count 4.91 X10*6/uL (4.20-5.50); Red Cell Distribution Width 12.5 % (11.0-16.0); White Blood Count 6.7 X10*3/uL (4.8-10.8)
[2024-09-04 10:54] LABS: Estimated Average Glucose 134 mg/dL; Hemoglobin A1C 179.9671 umol/L; Hemoglobin A1c % 6.3 % (<6.0)
[2024-09-04 11:36] LABS: Alanine Aminotransferase 30 U/L (0-31); Albumin Level 4.1 g/dL (3.5-5.0); Alkaline Phosphatase 87 U/L (39-117); Anion Gap 11 (12-20); Aspartate Amino Transferase 28 U/L (5-31); Bilirubin Direct 0.2 mg/dL (0.0-0.5); Bilirubin Total 0.6 mg/dL (0.0-1.0); Blood Urea Nitrogen 20 mg/dL (9-16); C Reactive Protein < 0.10 mg/dL (< or = 0.50); Calcium 9.4 mg/dL (8.4-10.2); Carbon Dioxide 27 mmol/L (22-29); Chloride 108 mmol/L (96-108); Cholesterol 136 mg/dL (<200); Estimated Glomerular Filt Rate > 60; Folate 14.8 ng/mL (> or = 4.0); Glucose Fasting 135 mg/dL (60-99); HDL Cholesterol 46 mg/dL (>40); LDL Cholesterol Calculated 74 mg/dL (<100); Magnesium 2.2 mg/dL (1.6-2.6); Potassium 4.6 mmol/L (3.3-5.1); Sodium 141 mmol/L (135-145); TSH reflex Free T4 1.09 uIU/mL (0.32-4.0); Total Protein 6.8 g/dL (6.5-8.0); Triglycerides 83 mg/dL (<150); Vitamin B12 614 pg/mL (200-900); Vitamin D 25-OH Total 71.9 ng/mL (>30)
[2024-09-04 13:49] LABS: Erythrocyte Sedimentation Rate 2 MM/HR (0-20)
== END 2024-09-04 08:07 | disposition home or self-care (01) ==
LOC: HO.HMGCLDS 08:06
PROVIDERS: PCP Internal Medicine; Visit Provider Physician Assistant Medical
DX: Z00.00 Encounter for general adult medical examination without abnormal findings (principal); Z13.1 Encounter for screening for diabetes mellitus; Z13.220 Encounter for screening for lipoid disorders; Z13.29 Encounter for screening for other suspected endocrine disorder; Z13.228 Encounter for screening for other metabolic disorders; Z13.0 Encounter for screening for diseases of the blood and blood-forming organs and certain disorders involving the immune mechanism
CPT/HCPCS: 36415; 80053; 80061; 80076; 82248; 82306; 82607; 82746; 83036; 83735; 84443; 85025; 85652; 86140

== ENCOUNTER 2024-09-12 13:39 | Outpatient (AMB) | payer MEDICARE, SELFPAY ==
--- NOTE | 2024-09-12 13:45 | A.OFFPC_ITS ---
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 Accompanied by: Self / Same As Patient Allergies Iodinated Contrast Media [IV CONTRAST] Allergy (Severe, Verified 09/12/24 14:21) RASH Medication List - Last Reconciled 09/12/24 by Efra Forrest MD aspirin 81 mg PO DAILY atorvastatin 10 mg PO DAILY 90 days cholecalciferol (vitamin D3) 10 mcg PO DAILY diclofenac sodium 50 mg PO BID lisinopril 20 mg PO DAILY multivitamin 1 tab PO DAILY Tobacco use date assessed: 09/12/24 Fall risk assessment: No Falls in past year Last assessed Fall Risk: 09/12/24 Dental Screening Dental Screen Date: 09/12/24 Did you have a dental visit in the last 12 months?: Yes Did you have a dental problem in the last 6 months where you did not have access to dental care?: No Was dental information given to patient?: Patient has dentist (upper dentures) FORMERLY [facility], [facility] Medical History (Updated 09/12/24 @ 14:23 by Efra Forrest MD) Hx of multiple sclerosis Spinal stenosis Osteoarthritis Diet-controlled diabetes mellitus High blood pressure Surgical History History of back surgery H/O colonoscopy (~08/02/23) Hx of arthroscopy of knee Hx of dilation and curettage Hx of tonsillectomy History of carpal tunnel surgery of left wrist Family History (Updated 09/12/24 @ 13:58 by LIDYA Muir) Father Diabetes BP (high blood pressure) Mother BP (high blood pressure) Diabetes Social History (Updated 09/12/24 @ 13:58 by LIDYA Muir) Housing: House Alcohol intake: current Alcohol intake frequency: does not drink Patient Tobacco Use Status: Former Tobacco user Tobacco use type: Cigarette service: No Current occupational status: retired Cognitive needs: Yes (walker) Hearing needs: Yes (b/l hearing aids) Vision needs: Yes (rx glasses) Questionnaire PHQ-9 Over the last 2 weeks, how often have you been bothered by any of the following problems? 1. Little interest or pleasure in doing things: not at all 2. Feeling down, depressed, or hopeless: not at all 3. Trouble falling or staying asleep, or sleeping too much: not at all 4. Feeling tired or having little energy: not at all 5. Poor appetite or overeating: not at all 6. Feeling bad about yourself - or that you are a failure or have let yourself or your family down: not at all 7. Trouble concentrating on things, such as reading the newspaper or watching television: not at all 8. Moving or speaking so slowly that other people could have noticed. Or the opposite - being so fidgety or restless that you have been moving around a lot more than usual: not at all 9. Thoughts that you would be better off or of hurting yourself in some way: not at all Total score: 0 Source: Developed by Drs. Osmar Cotton, Karley Jaime, Kash Colon and colleagues, with an educational daron from [employer]. Thrive Questionnaire Date Thrive assessed: 09/12/24 I am a: Patient What is your living situation today?: I have a steady place to live Within the past 12 months, did the food you bought not last and you didn't have the money to get more?: Never true Within the past 12 months, did you worry whether your food would run out before you got money to buy more?: Never true Do you have trouble paying for medicines?: No Do you have trouble getting transportation to medical appointments?: No Do you have trouble paying your heating and electricity bill?: No Do you have trouble taking care of your child, family member or friend?: No Do you have trouble with day-to-day activities such as bathing, preparing meals, shopping, managing finances, etc.?: No Are you currently unemployed and looking for a job?: No Are you interested in more education?: No Please select the resources that you would like help with: None THRIVE Score: 0 AUDIT C Alcohol Use Questionnaire (AUDIT-C) 1. How often do you have a drink containing alcohol?: Never 3. How often do you have six or more drinks on one occasion?: Never Total Score: 0 MARTIR-7 AMB Questionnaire MARTIR-7 Date MARTIR - 7 assessed: 09/12/24 Feeling nervous, anxious, or on edge: 0 = Not at all Not being able to stop or control worryin = Not at all Worrying too much about different things: 0 = Not at all Trouble relaxin = Not at all Being so restless that it is hard to sit still: 0 = Not at all Becoming easily annoyed or irritable: 0 = Not at all Feeling afraid as if something awful might happen: 0 = Not at all Total MARTIR-7 score (0-4 normal; 5-9 mild; 10-14 moderate; 15-21 severe): 0 Source: Developed by Drs. Osmar Cotton, Karley Jaime, Kash Colon and colleagues, with an educational daron from [employer]. Physical exam (Primary Care) Vital Signs: Last Vital Signs Temp 97.7 F 09/12/24 13:48 Pulse 100 09/12/24 13:48 BP 146/80 H 09/12/24 13:48 Pulse Ox 98 09/12/24 13:48 Oxygen Delivery Method Room Air 09/12/24 13:48 BMI result Body Mass Index 27.2 Tobacco/Smoking Status: Tobacco use Status Tobacco use date assessed 09/12/24 09/12/24 13:59 Patient Tobacco Use Status Former Tobacco user 09/12/24 13:58 Tobacco use type Cigarette 09/12/24 13:58 PHQ-9: PHQ-9 Score PHQ-9: Total score 0 09/12/24 14:00 Thrive Assessment: Date of Thrive Assessment Date Thrive assessed 09/12/24 09/12/24 13:59 Coding Level of Care Code New Pt Level 4 (51680) Complex EM visit Add On G2211 Diagnoses Carpal tunnel syndrome of left wrist G56.02 Spinal stenosis M48.00 Hx of multiple sclerosis G35 Assessment & Plan Assessment & Plan (1) Carpal tunnel syndrome of left wrist: Code(s): G56.02 - Carpal tunnel syndrome, left upper limb Category: Medical Plan: Condition is stable. Continue current meds. (2) Spinal stenosis: Code(s): M48.00 - Spinal stenosis, site unspecified Category: Medical Plan: Condition is stable. She had surgery which did not provide much relief. Using a walker. (3) Hx of multiple sclerosis: Code(s): G35 - Multiple sclerosis Category: Medical Plan: Sees a neurologist at [place]. On no medications. Plan History of Present Illness The patient is a 78-year-old female presenting with issues related to her hand and chronic conditions management. She underwent carpal tunnel surgery for her left hand in 2022 due to numbness. Post-operatively, her hand symptoms have worsened, particularly in the middle finger, which now clicks and swells, although she retains full functionality. Additionally, the patient was diagnosed with Multiple Sclerosis (MS) in 2022 after an MRI showed lesions following her complaint of double vision. She avoids MS medication due to age-related side effects and continues with physical therapy. The patient's medical history includes scoliosis, spinal stenosis, and severe back arthritis. She describes episodes of ectopic beats, last noted two months ago, without sequela. She also reports sporadic diarrhea and urinary urgency linked to MS, managed with fiber supplements. Her diabetes management remains effective with a steady A1c in the 6s exclusion of medication need. Recent colonoscopy results anecdotal. Despite various health concerns, she remains active with routine daily exercises. Social History - Employed at [employer] for 42 years before retiring at age 70. - Regular physical activity includes exercise and participating in physical therapy. - Consumes fiber supplements regularly to manage bowel issues. - Careful with diet and weight management to control blood sugar levels. Review of Systems - Musculoskeletal: Reports trigger finger in the left hand; denies pain with function. - Neurological: Reports double vision, and weakness prior to MS diagnosis. - Cardiovascular: Reports ectopic beats episodes; denies atrial fibrillation. - Gastrointestinal: Reports diarrhea episodes; denies constipation. - Genitourinary: Reports urinary incontinence; denies dysuria. Physical Exam General: Cooperative and healthy appearing Nutritional Appearance: Well nourished Orientation/consciousness: Patient oriented x3 Limitations: No limitations Head: Normal to inspection General: Appearance normal, both eyes and all related structures Neck: Normal visual inspection Chest: Normal palpation of entire chest wall Respiratory: N ormal respiratory effort Neurology: Patient oriented x3, diagnosed with MS, experiencing double vision and weakness, uses a walker for mobility. Results - Labs: Fasting glucose normal; A1c in the 6s. Plan The plan includes continued conservative management for the patient's left-hand trigger finger and long-term MS management via physical therapy, considering age-related medication concerns. Persistent back issues related to scoliosis, spinal stenosis, and osteoarthritis require further monitoring and exercise promotion. Benign ectopic beats will be regularly observed for changes without immediate intervention needed. Diabetes monitoring remains focused on maintaining A1c within current levels through diet and weight management. Bowel issues are managed effectively with fiber supplements. Regular follow-ups will occur to track and adapt management strategies as necessary. Patient was informed and verbally consented to the use of an ambient scribe for clinic note documentation during this visit. Discussion Notes I discussed with the patient the current management of her left hand trigger finger, which retains functional capabilities negating immediate surgical intervention, with steroid injection reserved should symptoms advance. We reviewed MS-related care in the context of physical therapy, noting the undesirability of current medication side effects. Her cardiac ectopic beats do not signify AFib, and I reassured her of their benign nature. I reinforced continued diabetes management through diet and exercise, acknowledging her excellent A1c control. Bowel management with fiber supplements is adequate. Scheduled follow-ups for comprehensive chronic condition oversight were noted. Patient Instructions - Continue your exercise program and physical therapy. - Monitor your left-hand symptoms; consider steroid injection if they worsen. - Maintain your current diet and weight management for diabetes care. - Utilize fiber supplements for bowel regularity, continue as per current routine. - Report any new or worsening cardiac symptoms for further evaluation. - Follow up as scheduled for chronic condition evaluation and management.
[2024-09-12 13:48] VITALS: BP 146/80; PULSE 100; TEMP 36.5; O2SAT 98; BMI 27.2
== END 2024-09-12 14:21 | disposition home or self-care (01) ==
LOC: HO.HMCSH 13:39
PROVIDERS: PCP Internal Medicine; Visit Provider Internal Medicine
DX: G56.02 Carpal tunnel syndrome, left upper limb (principal); M48.00 Spinal stenosis, site unspecified; G35 Multiple sclerosis

== ENCOUNTER → 2024-09-12 13:39 | Outpatient (BNVA) | payer MEDICARE, SELFPAY | PROVIDERS: PCP Internal Medicine; Visit Provider Internal Medicine | DX: G56.02 Carpal tunnel syndrome, left upper limb (principal); G35 Multiple sclerosis; M48.00 Spinal stenosis, site unspecified | CPT/HCPCS: 99202 ==

== ENCOUNTER 2024-09-26 11:20 | Outpatient (AMB) | payer MEDICARE, SELFPAY ==
[2024-09-26 11:34] VITALS: BP 182/80; PULSE 91; BMI 27.2
--- NOTE | 2024-09-26 11:34 | A.OFFVIS_ITS ---
Vital Signs 09/26/24 11:34 Height 5 ft 6.5 in Weight 171 lb BMI 27.2 BP 182/80 H Blood Pressure Location Rt brachial Position Sitting Pulse 91 Intake Visit Reasons: Hard lump under rt br Intake Note: Patient scheduled today's appointment concerned with lump ? scar tissue under Rt br. Reports no personal or family hx breast CA. Patient c/o: lump feels hard to touch. Denies pain or tenderness. Wants reassurance she will be okay to keep mammogram appointment. Ultrasound Spec Required: No Accompanied by: Self / Same As Patient Allergies Iodinated Contrast Media [IV CONTRAST] Allergy (Severe, Verified 09/26/24 11:36) RASH Medication List - Last Reconciled 09/26/24 by Nate Arteaga MD aspirin 81 mg PO DAILY atorvastatin 10 mg PO DAILY 90 days cholecalciferol (vitamin D3) 10 mcg PO DAILY diclofenac sodium 50 mg PO BID lisinopril 20 mg PO DAILY multivitamin 1 tab PO DAILY HPI HPI Hard lump under rt br: Details: 78-year-old female here for follow-up for a right breast carbuncle. She had an I&D done with Dr. Trevino last year for this. She says she was scheduled to have a mammogram around that time but this had to be postponed because of her acute infection of the right breast She says that the she has been called to have the mammogram done. She says she wanted to make sure that she is ready for this so she came to the office She describes this ?knot? the previous I&D site. She denies any drainage or redness. She has known MS and ambulates with a walker. [facility] Medical History (Updated 09/26/24 @ 12:23 by Nate Arteaga MD) History of breast abscess Hx of multiple sclerosis Spinal stenosis Osteoarthritis Diet-controlled diabetes mellitus High blood pressure Surgical History History of back surgery H/O colonoscopy (~08/02/23) Hx of arthroscopy of knee Hx of dilation and curettage Hx of tonsillectomy History of carpal tunnel surgery of left wrist Family History Father Diabetes BP (high blood pressure) Mother BP (high blood pressure) Diabetes Social History Housing: House Alcohol intake: current Alcohol intake frequency: does not drink Patient Tobacco Use Status: Former Tobacco user Tobacco use type: Cigarette service: No Current occupational status: retired Cognitive needs: Yes (walker) Hearing needs: Yes (b/l hearing aids) Vision needs: Yes (rx glasses) Review of Systems Const Denies chills and Denies fever(s) Card Denies chest pain, Denies dyspnea and Denies dyspnea on exertion Resp Denies cough, Denies dyspnea and Denies dyspnea on exertion GI Denies hematochezia and Denies change in bowel habits Denies hematuria Musc Reports abnormal gait, Denies back pain, Denies limited range of motion and Reports muscle weakness Neuro Reports abnormal gait, Denies focal weakness and Denies convulsions Psych Denies depression and Denies mood swings Physical Exam Vital Signs: Last Vital Signs Pulse 91 09/26/24 11:34 BP 182/80 H 09/26/24 11:34 BMI result Body Mass Index 27.2 Const Other: Ambulates with a walker General: comfortable and no acute distress Chest Other: Right breast with note of a scar, about 1 cm long, on the skin medially, no fluctuance, no redness, no cellulitis Resp Effort & Inspection: normal respiratory effort Cardio Rate: regular rate GI Palpation (GI): Soft to palpation Assessment & Plan Assessment & Plan (1) History of breast abscess: Code(s): Z87.2 - Personal history of diseases of the skin and subcutaneous tissue Category: Medical Plan: She had an abscess in the carbuncle on the right breast last year. An I&D he had been done by Dr. Trevino. Examination does not reveal any fluctuance, redness or any discharge She is supposed to undergo a mammogram and I told her that she should be ready for this. The area of the surgical site should not be an issue with regards to her mammogram at this point. Coding Level of Care Code Est Pt Level 3 (92526) Diagnoses History of breast abscess Z87.2
--- OUTSIDE RECORDS SUMMARY | 2024-09-26 13:25 | XMS_ITS | Patient Health Record ---
Author Organization [facility] [place] Address [address] [place] [address] Care Team Providers Care Social Group Worker Name Role Phone Osmar Tam MD Primary Care Provider Unavail able Chance Long Unavailable [phone] Allergies Allergen (clinical drug ingredient) Drug/Non Drug [...] [employer] [address] [place] [address] [id number] Deanna Howard Self - patient is the insured [facility] 65 Medicare Preferred [address] [place] [address] [id number] Deanna Howard Self - patient is the insured Medical (General) History Medical History History ICD Code Hypertension Hypercholesterolemia Vitamin D deficiency osteoarthritis Back pain Menopause Glucose intolerance Cystitis with microscopic hematuria Varicella Zoster Surgical History Surgery Date(Month/Year) Tonsillectomy 1961 Cataract Surgery 2019 Arthrolopy Surgery and Knee 2016
== END 2024-09-26 11:40 | disposition home or self-care (01) ==
LOC: HO.HGS 11:21
PROVIDERS: PCP Internal Medicine; Visit Provider Surgery
DX: Z87.2 Personal history of diseases of the skin and subcutaneous tissue (principal)
CPT/HCPCS: 99213

== ENCOUNTER → 2024-09-26 11:20 | Outpatient (BNVA) | payer MEDICARE, SELFPAY | PROVIDERS: PCP Internal Medicine; Visit Provider Surgery | DX: Z87.2 Personal history of diseases of the skin and subcutaneous tissue (principal) | CPT/HCPCS: 99212 ==

== ENCOUNTER 2024-10-31 14:18 | Outpatient (REF) | payer MEDICARE, SELFPAY | END 2024-10-31 14:19 | disposition home or self-care (01) | LOC: HO.MAMMO 14:18 | PROVIDERS: PCP Internal Medicine; Visit Provider Surgery | DX: Z12.31 Encounter for screening mammogram for malignant neoplasm of breast (principal) | CPT/HCPCS: 77063; 77067 ==

== ENCOUNTER → 2024-10-31 14:45 | Outpatient (BNV) | payer MEDICARE, SELFPAY | PROVIDERS: PCP Internal Medicine; Visit Provider Internal Medicine | DX: Z12.31 Encounter for screening mammogram for malignant neoplasm of breast (principal) | CPT/HCPCS: 77063; 77067 ==

== ENCOUNTER 2024-12-26 12:27 | Outpatient (AMB) | payer MEDICARE, SELFPAY ==
--- NOTE | 2024-12-26 12:48 | MHC.OFFVIS ---
Vital Signs 12/26/24 12:59 Height 5 ft 6.5 in Weight 171 lb BMI 27.2 Intake Visit Reasons: New prob-Lt MF trigger finger Intake Note: June 79 yr old right hand dominant female presents today for a new problem visit for her left middle trigger finger. States her finger is locking and catching that started in the beginning of October and has gotten worse. States her finger locks when making a fist and is now unable to fully bend her finger down. States pain in throughout her whole finger and numbness at the tip of her finger. She mentions being diagnosed with MS that might be contributing to her numbness. She also complains of swelling in palm area. Denies injury. Hx of left CTR done with Dr Montiel on 09/07/22. Allergies Iodinated Contrast Media (IV CONTRAST) Allergy (Severe, Verified 12/26/24 12:52) RASH HPI HPI New prob-Lt MF trigger finger: Details: June is a 79 year old right hand dominant woman who presents with complaints of left middle finger locking. She complains of painful locking & catching of her left middle finger, onset ~2 months ago. She says she now is not able to make a fully closed fist due to the pain & locking. She complains of numbness in her middle finger. She has a Hx of left CTR, DOS: 09/07/22. She had dense numbness prior to and following her surgery. She denies any prior treatment options. She says she was recently diagnosed with MS. [facility] Medical History (Updated 12/26/24 @ 13:20 by Checo Garcia) History of breast abscess Hx of multiple sclerosis Spinal stenosis Osteoarthritis Diet-controlled diabetes mellitus High blood pressure Surgical History (Updated 12/26/24 @ 12:59 by LIDYA Jones) History of back surgery H/O colonoscopy (~08/02/23) Hx of arthroscopy of knee Hx of dilation and curettage Hx of tonsillectomy History of carpal tunnel surgery of left wrist Family History Father Diabetes BP (high blood pressure) Mother BP (high blood pressure) Diabetes Social History (Updated 12/26/24 @ 12:59 by LIDYA Jones) Housing: House Alcohol intake: current Alcohol intake frequency: does not drink Patient Tobacco Use Status: Former Tobacco user Tobacco use type: Cigarette service: No Current occupational status: retired Current occupation: right hand dominant Cognitive needs: Yes (walker) Hearing needs: Yes (b/l hearing aids) Vision needs: Yes (rx glasses) Review of Systems Const All systems reviewed & are unremarkable except as noted in HPI and below Physical Exam Vital Signs: BMI result Body Mass Index 27.2 Const General: no acute distress and alert Orientation/consciousness: patient oriented x3 Neuro General: patient oriented x3 Extrem Other: Evaluation of Left Upper Extremity: The patient is alert, oriented, and in no acute distress Neuro: Median, Ulnar, Radial nerves motor and sensory intact and sensation is normal to the tips of all digits Vascular: Cap refill brisk ROM: She can make a fist and extend all her digits Visible & palpable locking & catching of the middle finger Tenderness & swelling over the middle finger A1 max ~3 degree flexion contracture at the DIP joint Psych Appearance: grossly normal Affect: normal affect Attitude: cooperative Office Procedures AMB Fracture Care Details: No fracture, injection Fracture Billing Code: Fracture Billing Code Assessment & Plan Assessment & Plan (1) Trigger middle finger of left hand: Code(s): M65.332 - Trigger finger, left middle finger Category: Medical (2) Hx of multiple sclerosis: Code(s): G35 - Multiple sclerosis Category: Medical Plan Assessment & Plan: 1. Left middle finger trigger finger I educated her about this condition I discussed operative and non-operative treatment options The patient would like to proceed with an injection She is beginning to develop a flexion contracture, she should work on ROM exercises at home Injection #1: The risks and benefits of a steroid injection including but not limited to risk of damage to blood vessels, nerves, tendons, infection, skin bleaching, failure to improve symptoms, increased pain, and possible need for further injections or other intervention were discussed with the patient and the patient wishes to proceed with the steroid injection. Once consent was obtained, I sterilely prepped the area over the A1 max of the flexor tendon sheath of the Left middle finger. I then injected the flexor tendon sheath with a combination of 1 mL of dexamethasone (4mg/ml), and 1% lidocaine. The patient tolerated the procedure well with no complications. If the patient continues to have locking and catching 4-6 weeks following this injection, they may call to schedule appointment to discuss alternative treatment options Follow-up prn 2. Left Carpal tunnel syndrome, S/P release DOS: 09/07/22 Pre-operatively with dense numbness Now with dense numbness, slightly improved from prior, and improvement in her nighttime symptoms Please note that greater than 30 minutes was spent with this patient going over the history, evaluating the patient and radiographs, formulating possible treatment options, discussing them with the patient, and documenting the visit. Scribed for Katlyn Montiel MD by Checo Garcia medical laboratory assistant, on 12/06/24 at 1:15 PM, EST. Coding Level of Care Code Est Pt Level 4 (91555) Diagnoses Trigger middle finger of left hand M65.332 Hx of multiple sclerosis G35 CPT Codes Fracture Care - Fracture Billing Code: Fracture Billing Code ([id number])
[2024-12-26 12:59] VITALS: BMI 27.2
== END 2024-12-26 13:43 | disposition home or self-care (01) ==
LOC: HO.HOS 12:27
PROVIDERS: PCP Internal Medicine; Visit Provider Orthopaedic Surgery
DX: M65.332 Trigger finger, left middle finger (principal); G35 Multiple sclerosis
CPT/HCPCS: 20550; 99214

== ENCOUNTER → 2024-12-26 12:27 | Outpatient (BNVA) | payer MEDICARE, SELFPAY | PROVIDERS: PCP Internal Medicine; Visit Provider Orthopaedic Surgery | DX: M65.332 Trigger finger, left middle finger (principal); G35 Multiple sclerosis | CPT/HCPCS: 20550; 99212; J1100; J2003 ==

== ENCOUNTER 2025-02-12 12:50 | Outpatient (AMB) | payer MEDICARE, SELFPAY ==
--- NOTE | 2025-02-12 12:53 | MHC.OFFVIS ---
Intake Visit Reasons: 4m Allergies Iodinated Contrast Media (IV CONTRAST) Allergy (Severe, Verified 02/12/25 12:58) RASH Medication List - Last Reconciled 02/12/25 by Evelin Black CNP aspirin 81 mg PO DAILY atorvastatin 10 mg PO DAILY 90 days celecoxib 200 mg PO DAILY PRN cholecalciferol (vitamin D3) 10 mcg PO DAILY lisinopril 20 mg PO DAILY multivitamin 1 tab PO DAILY HPI Comments Details: She felt like she was getting weaker all over. Had one fall in 12/2024 when left leg gave out while trying to get into car and needed help up. Using walker outside of home, no further falls. Doing home exercises. Body aches and arthritis pains all over, including to hands, back, and knees. Taking Celebrex which helps and works better than diclofenac, uses Tylenol as needed. Left middle finger trigger finger, got steroid injection at the end of 11/2024 and has follow up next month. Some trouble sleeping, occasionally naps in the afternoon and falls asleep on recliner in evening. No double vision when using glasses with prisms, eye exam was okay. Feels her balance has gotten worse since around 2019. RLE weaker than LLE. Some left lower back pain, occasional abnormal sensation down side of left leg that comes and goes. It was happening more frequently before L4-5 fusion and decompression in 03/2023. Intermittent diplopia began around 07/2022. Back pain somewhat improved after L4-5 fusion and decompression in 03/2023. History of low back pain from spinal stenosis and scoliosis, cataract surgery x years ago, L CTS release. Had loose bowels for months in the past with no findings on colonoscopy, better with fiber supplement. MRI brain 01/2023 shows extensive white matter disease which could be MS or cerebral microvascular disease. [facility], [facility] Medical History (Updated 02/12/25 @ 12:56 by Evelin Black CNP) History of breast abscess Hx of multiple sclerosis Spinal stenosis Osteoarthritis Diet-controlled diabetes mellitus High blood pressure Surgical History (Updated 12/26/24 @ 12:59 by Laura Carey Raquel) History of back surgery H/O colonoscopy (~08/02/23) Hx of arthroscopy of knee Hx of dilation and curettage Hx of tonsillectomy History of carpal tunnel surgery of left wrist Family History Father Diabetes BP (high blood pressure) Mother BP (high blood pressure) Diabetes Social History (Updated 12/26/24 @ 12:59 by Laura Carey [facility] Housing: House Alcohol intake: current Alcohol intake frequency: does not drink Patient Tobacco Use Status: Former Tobacco user Tobacco use type: Cigarette service: No Current occupational status: retired Current occupation: right hand dominant Cognitive needs: Yes (walker) Hearing needs: Yes (b/l hearing aids) Vision needs: Yes (rx glasses) Review of Systems Const Denies chills, Denies daytime sleepiness, Reports difficulty sleeping, Denies fatigue, Denies fever(s), Denies frequent falls, Denies headache(s), Denies increased appetite, Denies poor appetite, Denies snoring, Reports weakness, Denies weight gain and Denies weight loss Eyes Denies loss of vision ENT Denies vertigo, Denies dizziness, Denies headache(s) and Denies neck pain Card Denies chest pain at rest, Denies chest pain with activity, Denies syncope, Denies leg edema, Denies palpitations, Denies dyspnea and Denies dyspnea on exertion Resp Denies cough, Denies dyspnea, Denies dyspnea on exertion and Denies snoring GI Denies abdominal pain, Denies constipation, Denies heartburn, Denies diarrhea and Denies nausea Denies urinary frequency, Denies urinary incontinence and Denies urinary urgency Musc Denies abnormal gait, Reports back pain, Reports myalgias, Reports arthralgias, Denies neck pain, Reports numbness and Reports tingling Neuro Denies abnormal gait, Denies vertigo, Denies dizziness, Denies syncope, Denies frequent falls, Denies headache(s), Denies lack of coordination, Denies loss of vision, Denies memory loss, Reports numbness, Denies Other visual disturbances, Denies restless legs, Denies seizure-like activity, Reports tingling, Denies paresthesias, Denies tremor(s) and Reports weakness Psych Denies anxiety, Denies depression, Denies auditory hallucinations, Denies memory loss and Denies visual hallucinations Endo Denies fatigue and Denies palpitations Physical Exam Const Other: General Appearance:? normal, in no acute distress. Heart:? S1, S2 normal, no murmurs. Lungs:? clear anteriorly and posteriorly. Musculoskeletal:? normal. Extremities:? no edema. Psych:? alert, oriented, cognitive function intact, cooperative with exam. Neuro Other: Abnormal Neurological Findings:?Right internuclear ophthalmoplegia. Mild weakness of left APB and decrease sensation in the fingertips on the left in a median nerve distribution. 5-/5 R dorsiflex. Walking with walker. Mental Status: alert and oriented X 3. Normal attention, orientation, memory, and affect. Cranial Nerves: Pupils are equal, round, and reactive to light. External ocular muscles are intact with R DEANA. Visual ibarra are full, no ptosis. Face is symmetrical, no facial weakness or droop. Facial sensations are normal. Tongue protrudes in midline. Palate elevates symmetrically. Shoulder shrugging is normal Motor Examination: As above, otherwise normal muscle tone, bulk and strength. No atrophy or fasciculations. No drift of the extended upper extremities. DTR 2+. Plantars are flexor. Sensory Exam: As above, otherwise normal light touch, temperature, pinprick, vibration, and joint-position sensations. Rhomberg sign is absent. Coordination: No ataxia. No titubation. Gait Exam: With walker. Cerebellar Signs: Frdval-by-hpar is okay. Extrapyramidal System: No tremor, rigidity with normal facial expressions. No bradykinesia. No bradyphrenia. Normal arm swing and posture. No propulsion or retropulsion. Speech: Normal. No dysphasia or dysarthria. Results Reviewed Results Reviewed: Labs for diplopia were negative including Achr antibodies 06/03/22 NCV/EMG LT UE Severe Carpal tunnel syndrome on the left in the upper extremity. Normal EMG in the left C5-T1 innervated muscles. 02/17/23 MRI brain c/w chronic MS versus microvascular disease 02/2024 MRI brain: No significant interval change in size and number of lesions Assessment & Plan Assessment & Plan (1) Multiple sclerosis: Code(s): G35 - Multiple sclerosis Category: Medical Plan: Continue celecoxib 200mg 1 capsule once a day as needed for pain. MRI brain ordered. (2) Cerebral microvascular disease: Code(s): I67.89 - Other cerebrovascular disease Category: Medical Plan: Continue low dose aspirin and statin. Control blood pressure. Plan Meds tried: diclofenac Orders: Orders MR head/brain wo con Today G35 - Multiple sclerosis Coding Level of Care Code Est Pt Level 4 (31389) Diagnoses Multiple sclerosis G35 Cerebral microvascular disease I67.89
== END 2025-02-12 13:22 | disposition home or self-care (01) ==
LOC: HO.HSM 12:51
PROVIDERS: PCP Internal Medicine; Referring Provider Internal Medicine; Visit Provider Registered Nurse
DX: G35 Multiple sclerosis (principal); I67.89 Other cerebrovascular disease
CPT/HCPCS: 99214

== ENCOUNTER → 2025-02-12 12:50 | Outpatient (BNVA) | payer MEDICARE, SELFPAY | PROVIDERS: PCP Internal Medicine; Referring Provider Internal Medicine; Visit Provider Registered Nurse | DX: G35 Multiple sclerosis (principal); I67.89 Other cerebrovascular disease | CPT/HCPCS: 99212 ==

== ENCOUNTER 2025-02-28 12:35 | Outpatient (AMB) | payer MEDICARE, SELFPAY ==
--- NOTE | 2025-02-28 12:49 | A.OFFVIS_ITS ---
Vital Signs 02/28/25 12:54 Height 5 ft 6.5 in Intake Visit Reasons: OV-LT MF trigger finger s/p injection 12/26 Intake Note: June is a 79 year old right hand dominant female who presents today for a follow up of her Right Middle Trigger Finger. At her last visit on 12/26/24 she was given an injection for this problem. Today states locking of finger has not gone away, she continues to have locking and increase pain. Patient is interested in surgery. Allergies Iodinated Contrast Media (IV CONTRAST) Allergy (Severe, Verified 02/28/25 12:53) RASH HPI HPI OV-LT MF trigger finger s/p injection 12/26: Details: June is a 79 year old right hand dominant Diabetic woman who returns for her left middle trigger finger, S/P injection on 12/26/24. She says the injection was not helpful and she would like to discuss surgery. She says she is not locking as often but she still has pain and difficulty m oving her thumb and making a closed fist. She complains of numbness in her middle finger. She has a Hx of left CTR, DOS: 09/07/22. She had dense numbness prior to and following her surgery. She denies any prior treatment options. She says she was recently diagnosed with MS. [facility] Medical History (Updated 02/28/25 @ 12:58 by Checo Garcia) History of breast abscess Hx of multiple sclerosis Spinal stenosis Osteoarthritis Diet-controlled diabetes mellitus High blood pressure Surgical History History of back surgery H/O colonoscopy (~08/02/23) Hx of arthroscopy of knee Hx of dilation and curettage Hx of tonsillectomy History of carpal tunnel surgery of left wrist Family History Father Diabetes BP (high blood pressure) Mother BP (high blood pressure) Diabetes Social History Housing: House Alcohol intake: current Alcohol intake frequency: does not drink Patient Tobacco Use Status: Former Tobacco user Tobacco use type: Cigarette service: No Current occupational status: retired Current occupation: right hand dominant Cognitive needs: Yes (walker) Hearing needs: Yes (b/l hearing aids) Vision needs: Yes (rx glasses) Physical Exam Const General: no acute distress and alert Orientation/consciousness: patient oriented x3 Neuro General: patient oriented x3 Extrem Other: Evaluation of Left Upper Extremity: The patient is alert, oriented, and in no acute distress Neuro: Median, Ulnar, Radial nerves motor and sensory intact and sensation is normal to the tips of all digits Vascular: Cap refill brisk ROM: She can make a fist and extend all her digits Visible & palpable locking & catching of the middle finger Tenderness & swelling over the middle finger A1 max ~3 degree flexion contracture at the DIP joint Psych Appearance: grossly normal Affect: normal affect Attitude: cooperative Assessment & Plan Assessment & Plan (1) Trigger middle finger of left hand: Code(s): M65.332 - Trigger finger, left middle finger Category: Medical (2) Diet-controlled diabetes mellitus: Code(s): E11.9 - Type 2 diabetes mellitus without complications Category: Medical (3) Multiple sclerosis: Code(s): G35 - Multiple sclerosis Category: Medical Plan Assessment & Plan: 1. Left middle finger trigger finger, S/p injection Date of injection: 12/26/24 I educated her about this condition I discussed operative and non-operative treatment options The patient would like to proceed with surgery She is beginning to develop a flexion contracture, she should work on ROM exercises at home The risks and benefits of operative treatment were discussed with the patient and the patient wishes to proceed with surgery. These risks include, but are not limited to risk of damage to blood vessels, nerves, tendons, infection, recurrence, incomplete relief of preoperative symptoms, persistent pain, possible need for further surgery and the risks associated with regional blocks and anesthesia. The plan is to take the patient to the operating room sometime in the next few weeks for the following procedures: 1. Let middle finger trigger release, under local All of the preoperative paperwork including the consent was reviewed today. All the patient's questions were answered. The patient understands that they will be contacted by our machine hoop maker soon to schedule this procedure She denies blood thinners, asthma, heart, lung, kidney issues She is a Diabetic, her most recent HgA1c was 6.3% on 09/04/24. They will need an updated HgA1c that is <8.1% in order to proceed with surgery, and they expressed understanding 2. Left Carpal tunnel syndrome, S/P release DOS: 09/07/22 Pre-operatively with dense numbness Now with dense numbness, slightly improved from prior, and improvement in her nighttime symptoms Scribed for Katlyn Montiel MD by Checo Garcia, lpn medical assistant, on 02/28/25 at 1:05 PM, EST. Coding Level of Care Code Est Pt Level 4 (42187) Diagnoses Trigger middle finger of left hand M65.332 Diet-controlled diabetes mellitus E11.9 Multiple sclerosis G35
== END 2025-02-28 13:28 | disposition home or self-care (01) ==
LOC: HO.HOS 12:36
PROVIDERS: PCP Internal Medicine; Visit Provider Orthopaedic Surgery
DX: M65.332 Trigger finger, left middle finger (principal); E11.9 Type 2 diabetes mellitus without complications; G35.D Multiple sclerosis, unspecified
CPT/HCPCS: 99214

== ENCOUNTER → 2025-02-28 12:35 | Outpatient (BNVA) | payer MEDICARE, SELFPAY | PROVIDERS: PCP Internal Medicine; Visit Provider Orthopaedic Surgery | DX: Z01.818 Encounter for other preprocedural examination (principal); M65.332 Trigger finger, left middle finger; E11.9 Type 2 diabetes mellitus without complications | CPT/HCPCS: 99212 ==

== ENCOUNTER → 2025-03-09 16:24 | Outpatient (BNV) | payer MEDICARE, SELFPAY | PROVIDERS: PCP Internal Medicine; Visit Provider Radiology Diagnostic Radiology | DX: G35.D Multiple sclerosis, unspecified (principal) | CPT/HCPCS: 70551 ==

== ENCOUNTER 2025-03-09 16:34 | Outpatient (REF) | payer MEDICARE, SELFPAY | END 2025-03-09 16:35 | disposition home or self-care (01) | LOC: HO.MRI 16:34 | PROVIDERS: PCP Internal Medicine; Visit Provider Registered Nurse | DX: G35.D Multiple sclerosis, unspecified (principal) | CPT/HCPCS: 70551 ==

== ENCOUNTER 2025-03-13 09:19 | Outpatient (AMB) | payer MEDICARE, SELFPAY ==
--- NOTE | 2025-03-13 09:24 | MHC.PC.OV ---
Vital Signs 03/13/25 09:25 Height 5 ft 6.5 in Weight 170 lb BMI 27.0 BP 148/82 H Respiration 16 Pulse 86 Pulse Source Pulse Oximeter Temp 98.0 F Temp Source Temporal Artery Scan Pulse Oximetry (%) 98 Oxygen Delivery Method Room Air Intake Visit Reasons: 6 month f/u Shrimp Header Required: No Allergies Iodinated Contrast Media (IV CONTRAST) Allergy (Severe, Verified 03/13/25 09:28) RASH Tobacco use date assessed: 03/13/25 Dental Screening Dental Screen Date: 09/12/24 [facility] Medical History History of breast abscess Hx of multiple sclerosis Spinal stenosis Osteoarthritis Diet-controlled diabetes mellitus High blood pressure Surgical History History of back surgery H/O colonoscopy (~08/02/23) Hx of arthroscopy of knee Hx of dilation and curettage Hx of tonsillectomy History of carpal tunnel surgery of left wrist Family History Father Diabetes BP (high blood pressure) Mother BP (high blood pressure) Diabetes Social History Housing: House Alcohol intake: current Alcohol intake frequency: does not drink Patient Tobacco Use Status: Former Tobacco user Tobacco use type: Cigarette service: No Current occupational status: retired Current occupation: right hand dominant Cognitive needs: Yes (walker) Hearing needs: Yes (b/l hearing aids) Vision needs: Yes (rx glasses) Questionnaire PHQ-9 Over the last 2 weeks, how often have you been bothered by any of the following problems? 1. Little interest or pleasure in doing things: not at all 2. Feeling down, depressed, or hopeless: not at all 3. Trouble falling or staying asleep, or sleeping too much: not at all 4. Feeling tired or having little energy: not at all 5. Poor appetite or overeating: not at all 6. Feeling bad about yourself - or that you are a failure or have let yourself or your family down: not at all 7. Trouble concentrating on things, such as reading the newspaper or watching television: not at all 8. Moving or speaking so slowly that other people could have noticed. Or the opposite - being so fidgety or restless that you have been moving around a lot more than usual: not at all 9. Thoughts that you would be better off or of hurting yourself in some way: not at all Total score: 0 Source: Developed by Drs. Osmar Cotton, Karley Jaime, Kash Colon and colleagues, with an educational daron from [employer]. Thrive Questionnaire Date Thrive assessed: 09/12/24 I am a: Patient What is your living situation today?: I have a steady place to live Within the past 12 months, did the food you bought not last and you didn't have the money to get more?: Never true Within the past 12 months, did you worry whether your food would run out before you got money to buy more?: Never true Do you have trouble paying for medicines?: No Do you have trouble getting transportation to medical appointments?: No Do you have trouble paying your heating and electricity bill?: No Do you have trouble taking care of your child, family member or friend?: No Do you have trouble with day-to-day activities such as bathing, preparing meals, shopping, managing finances, etc.?: No Are you currently unemployed and looking for a job?: No Are you interested in more education?: No Please select the resources that you would like help with: None THRIVE Score: 0 AUDIT C Alcohol Use Questionnaire (AUDIT-C) 1. How often do you have a drink containing alcohol?: Never 3. How often do you have six or more drinks on one occasion?: Never Total Score: 0 MARTIR-7 AMB Questionnaire MARTIR-7 Date MARTIR - 7 assessed: 09/12/24 Feeling nervous, anxious, or on edge: 0 = Not at all Not being able to stop or control worryin = Not at all Worrying too much about different things: 0 = Not at all Trouble relaxin = Not at all Being so restless that it is hard to sit still: 0 = Not at all Becoming easily annoyed or irritable: 0 = Not at all Feeling afraid as if something awful might happen: 0 = Not at all Total MARTIR-7 score (0-4 normal; 5-9 mild; 10-14 moderate; 15-21 severe): 0 Source: Developed by Drs. Osmar Cotton, Karley Jaime, Kash Colon and colleagues, with an educational daron from [employer]. Physical exam (Primary Care) Vital Signs: Last Vital Signs Temp 98.0 F 03/13/25 09:25 Pulse 86 03/13/25 09:25 Resp 16 03/13/25 09:25 BP 148/82 H 03/13/25 09:25 Pulse Ox 98 03/13/25 09:25 Oxygen Delivery Method Room Air 03/13/25 09:25 BMI result Body Mass Index 27.0 Tobacco/Smoking Status: Tobacco use Status Tobacco use date assessed 03/13/25 03/13/25 09:35 Patient Tobacco Use Status Former Tobacco user 03/13/25 09:35 Tobacco use type Cigarette 03/13/25 09:35 PHQ-9: PHQ-9 Score PHQ-9: Total score 0 03/13/25 09:35 Thrive Assessment: Date of Thrive Assessment Date Thrive assessed 09/12/24 03/13/25 09:35 Coding Level of Care Code Est Pt Level 4 (98689) Complex EM visit Add On G2211 Diagnoses Diet-controlled diabetes mellitus E11.9 Assessment & Plan Assessment & Plan (1) Diet-controlled diabetes mellitus: Code(s): E11.9 - Type 2 diabetes mellitus without complications Category: Medical Plan: History of Present Illness - The patient is a 79-year-old female presenting with fecal incontinence. - Reports sporadic episodes of fecal incontinence over the past decade, with stool consistency described as oatmeal-like. - Fiber supplements have improved bowel control, though occasional liquid stool leakage occurs, especially with high coffee intake. - History of Multiple Sclerosis, contributing to bowel symptoms, with a normal colonoscopy in August 2023. - Scoliosis and lumbar spinal stenosis present, with prior L4-L5 decompression and fusion surgery leading to morning stiffness and pain. - Experiences heartburn, managed with Celebrex, and has a history of trigger finger and carpal tunnel syndrome, with upcoming surgery for trigger finger. - Reports hearing loss, insomnia, and muscle mass loss, attributed to aging and MS. - Not on MS medication due to age, under neurologist care, with recent MRI for lesion check. - History of diabetes mellitus, with A1c levels in the 6s, advised for biannual blood sugar checks. Social History - The patient lives with her and is able to drive, including at night. - She has experienced a loss of muscle mass over the past few years, which she attributes to aging. - The patient uses hearing aids due to hearing loss, which is associated with her MS. Review of Systems - Gastrointestinal: Reports fecal incontinence with oatmeal-like stool consistency, occasional liquid stool leakage, and heartburn. - Neurological: Reports hearing loss and insomnia, denies headaches or dizziness. - Musculoskeletal: Reports morning stiffness and pain post-surgery, muscle mass loss, denies joint swelling. - Endocrine: Reports history of diabetes mellitus, denies recent hypoglycemic episodes. Physical Exam General: Cooperative and healthy appearing Nutritional Appearance: Well nourished Orientation/consciousness: Patient oriented x3 Limitations: No limitations Head: Normal to inspection General: Appearance normal, both eyes and all related structures Neck: Normal visual inspection Chest: Normal palpation of entire chest wall Respiratory: N ormal respiratory effort Neurology: Patient oriented x3, reports fecal incontinence possibly related to MS. Results - Colonoscopy in August 2023: No abnormalities found. - MRI: Recent scan performed to check for new lesions related to MS. - Blood work in August: Results were within normal limits. Plan - Continue fiber supplements for fecal incontinence management and monitor for changes. - Perform pelvic floor exercises to enhance bowel control. - Follow up with neurologist for MS management and review MRI results. - Proceed with scheduled trigger finger surgery on April 02 and monitor recovery. - Use Celebrex for inflammation, consider muscle relaxants if stiffness persists. - Monitor blood sugar levels biannually with follow-up blood work. Discussion Notes I discussed with the patient the importance of continuing fiber supplements to manage fecal incontinence and recommended pelvic floor exercises to improve bowel control. We reviewed the recent MRI results and emphasized the need for follow-up with the neurologist for MS management. I also advised on the upcoming trigger finger surgery and the use of Celebrex for inflammation, considering muscle relaxants if stiffness persists. We agreed on monitoring blood sugar levels biannually and conducting follow-up blood work as needed. Patient Instructions - Continue taking fiber supplements daily to help manage bowel movements. - Perform pelvic floor exercises regularly to strengthen bowel control. - Follow up with your neurologist to discuss MRI results and MS management. - Attend the scheduled surgery for your trigger finger on April 02. - Use Celebrex as prescribed for inflammation, and consider using a heating pad for stiffness. - Monitor your blood sugar levels and follow up with blood work as advised. Orders: Orders Hemoglobin A1c Today E11.9 - Type 2 diabetes mellitus without complications Liver Panel Today E11.9 - Type 2 diabetes mellitus without complications Thyroid Stimulating Hormone Today E11.9 - Type 2 diabetes mellitus without complications Microalbumin, Random (w Creat) Today E11.9 - Type 2 diabetes mellitus without complications Complete Blood Count no Diff Today E11.9 - Type 2 diabetes mellitus without complications Basic Metabolic Panel Today E11.9 - Type 2 diabetes mellitus without complications Lipid Panel Today E11.9 - Type 2 diabetes mellitus without complications UA and rflx microscopic Today E11.9 - Type 2 diabetes mellitus without complications
[2025-03-13 09:25] VITALS: BP 148/82; PULSE 86; RESP 16; TEMP 36.7; O2SAT 98; BMI 27.0
== END 2025-03-13 10:05 | disposition home or self-care (01) ==
LOC: HO.HMCSH 09:19
PROVIDERS: PCP Internal Medicine; Visit Provider Internal Medicine
DX: E11.9 Type 2 diabetes mellitus without complications (principal)

== ENCOUNTER → 2025-03-13 09:19 | Outpatient (BNVA) | payer MEDICARE, SELFPAY | PROVIDERS: PCP Internal Medicine; Visit Provider Internal Medicine | DX: E11.9 Type 2 diabetes mellitus without complications (principal); R12 Heartburn | CPT/HCPCS: 96127; 99212 ==

== ENCOUNTER 2025-03-16 07:43 | Outpatient (REF) | payer MEDICARE, SELFPAY ==
[2025-03-16 10:09] LABS: Hematocrit 48.9 % (37.0-47.0); Hemoglobin 15.9 g/dl (12.0-16.0); Mean Corpuscular HGB Conc 32.5 g/dl (31.0-35.0); Mean Corpuscular Hemoglobin 30.2 pg (27.0-33.0); Mean Corpuscular Volume 92.8 fL (80.0-98.0); NRBC Abs Auto 0.000 X10*3/uL (0.0-0.012); NRBC Pct Auto 0.0 /100WBC (0.0-0.2); Platelet Count 266 X10*3/uL (160-400); Red Blood Count 5.27 X10*6/uL (4.20-5.50); White Blood Count 9.7 X10*3/uL (4.8-10.8)
[2025-03-16 10:13] LABS: Appearance Urine Clear; Glucose Urine UA Negative (Negative); PH 5.0 (5.0-9.0); Specific Gravity - Urine 1.015 (1.005-1.025); UMIC TRIGGER UA YES
[2025-03-16 11:54] LABS: Microalbum/Creatinine Ratio Ur 18.8 ug/mg cr (<30)
[2025-03-16 13:08] LABS: Thyroid Stimulating Hormone 1.09 uIU/mL (0.32-4.0)
[2025-03-16 13:10] LABS: Anion Gap 11 (12-20)
[2025-03-16 13:15] LABS: Alanine Aminotransferase 30 U/L (0-31); Albumin Level 4.5 g/dL (3.5-5.0); Alkaline Phosphatase 99 U/L (39-117); Aspartate Amino Transferase 32 U/L (5-31); Blood Urea Nitrogen 17 mg/dL (9-16); Calcium 9.3 mg/dL (8.4-10.2); Carbon Dioxide 27 mmol/L (22-29); Chloride 107 mmol/L (96-108); Cholesterol 140 mg/dL (<200); Estimated Glomerular Filt Rate > 60; HDL Cholesterol 47 mg/dL (>40); Potassium 4.1 mmol/L (3.3-5.1); Sodium 141 mmol/L (135-145); Total Protein 7.1 g/dL (6.5-8.0); Triglycerides 91 mg/dL (<150)
== END 2025-03-16 07:44 | disposition home or self-care (01) ==
LOC: HO.HMGCLDS 07:43
PROVIDERS: PCP Internal Medicine; Visit Provider Internal Medicine
DX: E11.9 Type 2 diabetes mellitus without complications (principal)
CPT/HCPCS: 36415; 80048; 80061; 80076; 81001; 82043; 82570; 83036; 84443; 85027

== ENCOUNTER 2025-03-29 11:35 | Outpatient (AMB) | payer MEDICARE, SELFPAY ==
--- NOTE | 2025-03-29 11:40 | A.OFFVIS_ITS ---
Intake Visit Reasons: after MRI Allergies Iodinated Contrast Media (IV CONTRAST) Allergy (Severe, Verified 03/29/25 11:47) RASH Medication List - Last Reconciled 03/29/25 by Evelin Black CNP aspirin 81 mg PO DAILY atorvastatin 10 mg PO DAILY 90 days celecoxib 200 mg PO DAILY PRN cholecalciferol (vitamin D3) 10 mcg PO DAILY lisinopril 20 mg PO DAILY multivitamin 1 tab PO DAILY psyllium husk (Daily Fiber) 0.52 grams PO DAILY HPI Comments Details: She was doing okay. She thought her hearing may be declining some. She has hearing aids, but did not have them today. Walking with walker when outside of home, no falls. Doing home exercises. Body aches and arthritis pains all over, celecoxib as needed helps some. Planning for left middle finger trigger release next month. No double vision when using glasses with prisms, last eye exam was okay. Sleep was generally okay, occasionally naps in the afternoon and may have trouble falling asleep at night. Previously felt like she was getting weaker all over. Had one fall in 12/2024 w hen left leg gave out while trying to get into car and needed help up. Celecoxib works better than diclofenac for pain. Body aches and arthritis pains including to hands, back, and knees, also uses Tylenol as needed. Feels her balance has gotten worse since around 2019. RLE weaker than LLE. Some left lower back pain, occasional abnormal sensation down side of left leg that comes and goes. It was happening more frequently before L4-5 fusion and decompression in 03/2023. Intermittent diplopia began around 07/2022. Back pain somewhat improved after L4-5 fusion and decompression in 03/2023. History of low back pain from spinal stenosis and scoliosis, cataract surgery x years ago, L CTS release. Had loose bowels for months in the past with no findings on colonoscopy, better with fiber supplement. MRI brain 01/2023 shows extensive white matter disease which could be MS or cerebral microvascular disease. [facility] Medical History History of breast abscess Hx of multiple sclerosis Spinal stenosis Osteoarthritis Diet-controlled diabetes mellitus High blood pressure Surgical History History of back surgery H/O colonoscopy (~08/02/23) Hx of arthroscopy of knee Hx of dilation and curettage Hx of tonsillectomy History of carpal tunnel surgery of left wrist Family History Father Diabetes BP (high blood pressure) Mother BP (high blood pressure) Diabetes Social History Housing: House Alcohol intake: current Alcohol intake frequency: does not drink Patient Tobacco Use Status: Former Tobacco user Tobacco use type: Cigarette service: No Current occupational status: retired Current occupation: right hand dominant Cognitive needs: Yes (walker) Hearing needs: Yes (b/l hearing aids) Vision needs: Yes (rx glasses) Review of Systems Const Denies chills, Denies daytime sleepiness, Reports difficulty sleeping, Denies fatigue, Denies fever(s), Denies frequent falls, Denies headache(s), Denies increased appetite, Denies poor appetite, Denies snoring, Reports weakness, Denies weight gain and Denies weight loss Eyes Denies loss of vision ENT Denies vertigo, Denies dizziness, Denies headache(s) and Denies neck pain Card Denies chest pain at rest, Denies chest pain with activity, Denies syncope, Denies leg edema, Denies palpitations, Denies dyspnea and Denies dyspnea on exertion Resp Denies cough, Denies dyspnea, Denies dyspnea on exertion and Denies snoring GI Denies abdominal pain, Denies constipation, Denies heartburn, Denies diarrhea and Denies nausea Denies urinary frequency, Denies urinary incontinence and Denies urinary urgency Musc Denies abnormal gait, Reports back pain, Reports myalgias, Reports arthralgias, Denies neck pain, Reports numbness and Reports tingling Neuro Denies abnormal gait, Denies vertigo, Denies dizziness, Denies syncope, Denies frequent falls, Denies headache(s), Denies lack of coordination, Denies loss of vision, Denies memory loss, Reports numbness, Denies Other visual disturbances, Denies restless legs, Denies seizure-like activity, Reports tingling, Denies paresthesias, Denies tremor(s) and Reports weakness Psych Denies anxiety, Denies depression, Denies auditory hallucinations, Denies memory loss and Denies visual hallucinations Endo Denies fatigue and Denies palpitations Physical Exam Const Other: General Appearance:? normal, in no acute distress. Heart:? S1, S2 normal, no murmurs. Lungs:? clear anteriorly and posteriorly. Musculoskeletal:? normal. Extremities:? no edema. Psych:? alert, oriented, cognitive function intact, cooperative with exam. Neuro Other: Abnormal Neurological Findings:?Right internuclear ophthalmoplegia. Mild weakness of left APB and decrease sensation in the fingertips on the left in a median nerve distribution. 5-/5 R dorsiflex. Walking with walker. Mental Status: alert and oriented X 3. Normal attention, orientation, memory, and affect. Cranial Nerves: Pupils are equal, round, and reactive to light. External ocular muscles are intact with R DEANA. Visual ibarra are full, no ptosis. Face is symmetrical, no facial weakness or droop. Facial sensations are normal. Tongue protrudes in midline. Palate elevates symmetrically. Shoulder shrugging is normal Motor Examination: As above, otherwise normal muscle tone, bulk and strength. No atrophy or fasciculations. No drift of the extended upper extremities. DTR 2+. Plantars are flexor. Sensory Exam: As above, otherwise normal light touch, temperature, pinprick, vibration, and joint-position sensations. Rhomberg sign is absent. Coordination: No ataxia. No titubation. Gait Exam: With walker. Cerebellar Signs: [id number] is okay. Extrapyramidal System: No tremor, rigidity with normal facial expressions. No bradykinesia. No bradyphrenia. Normal arm swing and posture. No propulsion or retropulsion. Speech: Normal. No dysphasia or dysarthria. Results Reviewed Results Reviewed: [address] [address] Magnetic Resonance Report Signed Patient: June Howard MR#: [id number] : 1945 Acct:[id number] Age/Sex: 79 / F ADM Date: 03/09/25 Loc: HO.MRI Attending Dr: Evelin Black RADIOLOGY SPECIALIST Ordering Physician: Evelin Black CNP Date of Service: 03/09/25 Procedure(s): MR head/brain wo con Accession Number(s): [id number] cc: Evelin Black RADIOLOGY SPECIALIST; Efra Forrest Reason for Exam: G35 - Multiple sclerosis CLINICAL HISTORY: G35 - Multiple sclerosis MR Brain without gadolinium Comparison: None provided Findings: No acute ischemic event identified in diffusion-weighted imaging. No intra-axial mass or hemorrhage. No midline shift. No hydrocephalus. Vascular flow voids are intact. The orbits are normal. The sinuses and mastoid air cells are clear. No focal bone lesion. Scattered periventricular and pericallosal foci of increased T2 and FLAIR signal. IMPRESSION: 1. Scattered periventricular and pericallosal foci of increased T2 and FLAIR signal; chronic microvascular ischemic changes and/or quiescent demyelinating process (multiple sclerosis). If and active crisis is present by clinical presentation consider MRI of the brain without and with IV contrast. 2. No acute intracranial findings. This document has been electronically signed by: Daniel Chamberlain MD on 03/14/2025 17:22:08 Dictated By: Daniel Chamberlain MD Signed By: <Electronically signed by Daniel Chamberlain MD in OV> 03/14/25 1723 -- Labs for diplopia were negative including Achr antibodies 06/03/22 NCV/EMG LT UE Severe Carpal tunnel syndrome on the left in the upper extremity. Normal EMG in the left C5-T1 innervated muscles. 02/17/23 MRI brain c/w chronic MS versus microvascular disease 02/2024 MRI brain: No significant interval change in size and number of lesions Assessment & Plan Assessment & Plan (1) Multiple sclerosis: Code(s): G35 - Multiple sclerosis Category: Medical Plan: MRI results reviewed. Continue celecoxib 200mg 1 capsule once a day as needed for pain. (2) Cerebral microvascular disease: Code(s): I67.89 - Other cerebrovascular disease Category: Medical Plan: Continue low dose aspirin and statin. Control blood pressure. Plan Meds tried: diclofenac Coding Level of Care Code Est Pt Level 4 (44533) Diagnoses Multiple sclerosis G35 Cerebral microvascular disease I67.89
== END 2025-03-29 12:01 | disposition home or self-care (01) ==
LOC: HO.HSM 11:36
PROVIDERS: PCP Internal Medicine; Visit Provider Registered Nurse
DX: G35.D Multiple sclerosis, unspecified (principal); I67.89 Other cerebrovascular disease
CPT/HCPCS: 99214

== ENCOUNTER → 2025-03-29 11:35 | Outpatient (BNVA) | payer MEDICARE, SELFPAY | PROVIDERS: PCP Internal Medicine; Visit Provider Registered Nurse | DX: G35.D Multiple sclerosis, unspecified (principal); I67.89 Other cerebrovascular disease; I10 Essential (primary) hypertension; Z87.891 Personal history of nicotine dependence; Z79.82 Long term (current) use of aspirin | CPT/HCPCS: 99212 ==

== ENCOUNTER 2025-04-02 10:08 | Day surgery (SDC) | payer MEDICARE, SELFPAY ==
[2025-04-02 10:41] VITALS: BP 150/75; PULSE 93; RESP 18; TEMP 37.2; O2SAT 98; BMI 27.1
--- NOTE | 2025-04-02 11:11 | MHC.SHP ---
Pre-Procedural Eval Section A - 24 Hr Update-Section A only Date of Service: 04/02/25 The patient is an INPATIENT: No Changes since office visit: No Cold of Flu in the past 2 weeks, No New Medical Problems, No Changes in Medication and No Patient answered all questions The patient has been examined within 24 hours of the surgical procedure. The History & Physical has been completed within 30 days and I have reviewed it.: Yes Section B - Complete if H&P > 30 days Chief Complaint: Trigger finger, left middle finger Allergies: Allergies Allergy/AdvReac Type Severity Reaction Status Date / Time Iodinated Contrast Media (IV Allergy Severe RASH Verified 03/29/25 11:47 CONTRAST) Plan Diagnosis/Plan: Unchanged I have reviewed the history and physical and performed a pertinent physical examination on my patient. No changes have occurred unless specified. Time Spent With Patient Time: Total time managing care of this patient today ____ minutes.
--- NOTE | 2025-04-02 11:11 | W.PM.OPN ---
Operative Note Operative Note Date of Service: 04/02/25 Narrative: Operative Note Preop diagnosis: 1. Left middle finger Trigger finger Postop diagnosis: Same Procedure: 1. Left middle finger A1 max release Surgeon: Katlyn Montiel MD Financial Services Associate: None Anesthesia: local block using 1% lidocaine with epinephrine Findings: No locking or catching after A1 max release EBL: Less than 5 mL Tourniquet time: None Specimens: None Complications: None Disposition: Brought to recovery room in stable condition Plan: Follow-up for 10-14 days for wound check and suture removal Indications: The patient is 79 years old, with a left middle finger trigger finger that has been unresponsive to nonoperative management. The risks and benefits of operative treatment including but not limited to risk of damage to blood vessels, nerves, tendons, infection, persistent pain, persistent symptoms, recurrence or possible need for additional surgery were discussed with the patient and the patient wishes to proceed with surgery. Procedure: Once consent was obtained a local block was performed in the preop area using a combination of 1% lidocaine with epinephrine. The patient was then brought back to the operating suite and placed on the operative table in supine position. The left upper extremity was prepped and draped in a standard surgical fashion. Once assured that we had a good block, a 1.5 cm oblique incision was made centered over the A1 max of the left middle finger . The incision was made through the skin to the subcutaneous tissues using a #15 blade. Careful dissection was made down to the level of the A1 max using tenotomy scissors, with care being taken to protect the nearby neurovascular structures. A longitudinal incision was made in the A1 max 1st using a #15 blade, then using tenotomy scissors under direct visualization. The A1 max was noted to be thickened. Following our A1 max release, we no longer saw any locking or catching of the digit with flexion and extension. Once satisfied with our A1 max release the wound was copiously irrigated with normal saline and hemostasis was obtained with a brief period of local pressure. The skin edges were reapproximated with some 5.0 nylon suture material and a sterile dressing was applied. The patient appears to have tolerated the procedure well and with no complications. All digits were well vascularized at the conclusion of the case.
[2025-04-02 12:27] VITALS: BP 173/74; PULSE 87; RESP 16; O2SAT 98
== END 2025-04-02 12:36 | disposition home or self-care (01) ==
PROVIDERS: PCP Internal Medicine; Visit Provider Orthopaedic Surgery
PROC: (CPT 26055; principal; 2025-04-02 12:50)
DX: M65.332 Trigger finger, left middle finger (principal); M79.645 Pain in left finger(s); R20.0 Anesthesia of skin; M19.90 Unspecified osteoarthritis, unspecified site; G35.D Multiple sclerosis, unspecified; Z91.041 Radiographic dye allergy status; E11.9 Type 2 diabetes mellitus without complications; I10 Essential (primary) hypertension; M48.00 Spinal stenosis, site unspecified; Z98.890 Other specified postprocedural states; Z87.891 Personal history of nicotine dependence
CPT/HCPCS: 26055; J0165; J2003

== ENCOUNTER → 2025-04-02 10:08 | Outpatient (BNV) | payer MEDICARE, SELFPAY | PROVIDERS: PCP Internal Medicine; Visit Provider Orthopaedic Surgery | DX: M65.332 Trigger finger, left middle finger (principal) | CPT/HCPCS: 26055 ==

== ENCOUNTER 2025-04-17 14:17 | Outpatient (AMB) | payer MEDICARE, SELFPAY ==
[2025-04-17 14:18] VITALS: BMI 27.0
--- NOTE | 2025-04-17 14:18 | MHC.OFFVIS ---
Vital Signs 04/17/25 14:18 Height 5 ft 6.5 in Weight 170 lb BMI 27.0 Intake Visit Reasons: PO-Lt MF Trigger Release 04/02/25 Intake Note: June is a 79 year old right hand dominant female who presents today for a Post-Operative Visit status post Left Middle Finger Release performed by Dr. Montiel on 04/02/25. Patient reports she is doing well. She denies any further locking and catching. She is not taking anything for pain. Sutures removed and steri strips applied. Allergies Iodinated Contrast Media (IV CONTRAST) Allergy (Severe, Verified 04/17/25 14:19) RASH HPI HPI PO-Lt MF Trigger Release 04/02/25: Details: June is a 79 year old right hand dominant female who presents today for a Post-Operative Visit status post Left Middle Finger Release performed by Dr. Montiel on 04/02/25. Patient reports she is doing well. She denies any further locking and catching. She is not taking anything for pain. Sutures removed and steri strips applied. No other acute complaints or concerns at this time [facility] Medical History History of breast abscess Hx of multiple sclerosis Spinal stenosis Osteoarthritis Diet-controlled diabetes mellitus High blood pressure Surgical History History of back surgery H/O colonoscopy (~08/02/23) Hx of arthroscopy of knee Hx of dilation and curettage Hx of tonsillectomy History of carpal tunnel surgery of left wrist Family History Father Diabetes BP (high blood pressure) Mother BP (high blood pressure) Diabetes Social History Housing: House Alcohol intake: current Alcohol intake frequency: does not drink Comment: counts correct Patient Tobacco Use Status: Former Tobacco user Tobacco use type: Cigarette service: No Current occupational status: retired Current occupation: right hand dominant Cognitive needs: Yes (walker) Hearing needs: Yes (b/l hearing aids) Vision needs: Yes (rx glasses) Review of Systems Const All systems reviewed & are unremarkable except as noted in HPI and below Physical Exam Vital Signs: BMI result Body Mass Index 27.0 Const General: no acute distress and alert Orientation/consciousness: patient oriented x3 Neuro General: patient oriented x3 Extrem Other: Evaluation of Left Upper Extremity: The patient is alert, oriented, and in no acute distress Neuro: Median, Ulnar, Radial nerves motor and sensory intact and sensation is normal to the tips of all digits Vascular: Cap refill brisk ROM: She can make a fist and extend all her digits No further Visible & palpable locking & catching of the middle finger No further tenderness and swelling over middle finger A1 max Incision well approximated, well healing ~3 degree flexion contracture at the DIP joint Psych Appearance: grossly normal Affect: normal affect Attitude: cooperative Assessment & Plan Assessment & Plan (1) Trigger middle finger of left hand: Code(s): M65.332 - Trigger finger, left middle finger Category: Medical Plan 1. Status post left middle finger trigger release DOS 04/02/2025 With good symptomatic resolution postoperatively Patient appears to be recovering well postoperatively Patient is educated about the typical recovery course No under water times one-week, 2 lb weight limit x2 weeks Patient appears to be recovering very well, and requires no further acute follow-up with us postoperatively Patient is educated and worrisome signs and symptoms, and should call us if they experience any of these, including but not limited to redness, swelling, increased pain, and discharge Patient understands this and is amenable to this plan Coding Level of Care Code Global (19617) Diagnoses Trigger middle finger of left hand M65.332
== END 2025-04-17 14:56 | disposition home or self-care (01) ==
LOC: HO.HOS 14:17
PROVIDERS: PCP Internal Medicine
DX: M65.332 Trigger finger, left middle finger (principal)
CPT/HCPCS: 99024

== ENCOUNTER → 2025-04-17 14:17 | Outpatient (BNVA) | payer MEDICARE, SELFPAY | PROVIDERS: PCP Internal Medicine | DX: M65.332 Trigger finger, left middle finger (principal) | CPT/HCPCS: 99212 ==

== ENCOUNTER 2025-05-08 10:49 | Outpatient (REF) | payer SELFPAY | END 2025-05-08 10:50 | disposition home or self-care (01) | LOC: HO.HAP 10:49 | PROVIDERS: Visit Provider Internal Medicine | DX: H90.3 Sensorineural hearing loss, bilateral (principal) | CPT/HCPCS: 92593 ==

== ENCOUNTER 2025-05-15 14:35 | Outpatient (AMB) | payer OTHER, MEDICARE, SELFPAY ==
--- NOTE | 2025-05-15 14:45 | A.OFFPC_ITS ---
Vital Signs 05/15/25 14:46 05/15/25 14:56 Height 5 ft 6.5 in Weight 173 lb BMI 27.5 BP 163/72 H 157/68 H Blood Pressure Location Rt brachial Lt brachial Position Sitting Sitting Respiration 16 Pulse 98 Pulse Source Pulse Oximeter Temp 98.2 F Temp Source Temporal Artery Scan Pulse Oximetry (%) 98 Oxygen Delivery Method Room Air Intake Visit Reasons: Block LT ear Mobile Equipment Operator Required: No Accompanied by: Self / Same As Patient Allergies Iodinated Contrast Media (IV CONTRAST) Allergy (Severe, Verified 05/15/25 14:46) RASH Tobacco use date assessed: 03/13/25 Dental Screening Dental Screen Date: 09/12/24 [facility] Medical History History of breast abscess Hx of multiple sclerosis Spinal stenosis Osteoarthritis Diet-controlled diabetes mellitus High blood pressure Surgical History History of back surgery H/O colonoscopy (~08/02/23) Hx of arthroscopy of knee Hx of dilation and curettage Hx of tonsillectomy History of carpal tunnel surgery of left wrist Family History Father Diabetes BP (high blood pressure) Mother BP (high blood pressure) Diabetes Social History Housing: House Alcohol intake: current Alcohol intake frequency: does not drink Comment: counts correct Patient Tobacco Use Status: Former Tobacco user Tobacco use type: Cigarette service: No Current occupational status: retired Current occupation: right hand dominant Cognitive needs: Yes (walker) Hearing needs: Yes (b/l hearing aids) Vision needs: Yes (rx glasses) Questionnaire PHQ-9 Over the last 2 weeks, how often have you been bothered by any of the following problems? 1. Little interest or pleasure in doing things: not at all 2. Feeling down, depressed, or hopeless: not at all 3. Trouble falling or staying asleep, or sleeping too much: not at all 4. Feeling tired or having little energy: not at all 5. Poor appetite or overeating: not at all 6. Feeling bad about yourself - or that you are a failure or have let yourself or your family down: not at all 7. Trouble concentrating on things, such as reading the newspaper or watching television: not at all 8. Moving or speaking so slowly that other people could have noticed. Or the opposite - being so fidgety or restless that you have been moving around a lot more than usual: not at all 9. Thoughts that you would be better off or of hurting yourself in some way: not at all Total score: 0 Source: Developed by Drs. Osmar Cotton, Karley Jaime, Kash Colon and colleagues, with an educational daron from [employer]. Thrive Questionnaire Date Thrive assessed: 09/12/24 I am a: Patient What is your living situation today?: I have a steady place to live Within the past 12 months, did the food you bought not last and you didn't have the money to get more?: Never true Within the past 12 months, did you worry whether your food would run out before you got money to buy more?: Never true Do you have trouble paying for medicines?: No Do you have trouble getting transportation to medical appointments?: No Do you have trouble paying your heating and electricity bill?: No Do you have trouble taking care of your child, family member or friend?: No Do you have trouble with day-to-day activities such as bathing, preparing meals, shopping, managing finances, etc.?: No Are you currently unemployed and looking for a job?: No Are you interested in more education?: No Please select the resources that you would like help with: None THRIVE Score: 0 AUDIT C Alcohol Use Questionnaire (AUDIT-C) 1. How often do you have a drink containing alcohol?: Never 3. How often do you have six or more drinks on one occasion?: Never Total Score: 0 MARTIR-7 AMB Questionnaire MARTIR-7 Date MARTIR - 7 assessed: 09/12/24 Feeling nervous, anxious, or on edge: 0 = Not at all Not being able to stop or control worryin = Not at all Worrying too much about different things: 0 = Not at all Trouble relaxin = Not at all Being so restless that it is hard to sit still: 0 = Not at all Becoming easily annoyed or irritable: 0 = Not at all Feeling afraid as if something awful might happen: 0 = Not at all Total MARTIR-7 score (0-4 normal; 5-9 mild; 10-14 moderate; 15-21 severe): 0 Source: Developed by Drs. Osmar Cotton, Karley Jaime, Kash Colon and colleagues, with an educational daron from [employer]. Physical exam (Primary Care) Vital Signs: Last Vital Signs Temp 98.2 F 05/15/25 14:46 Pulse 98 05/15/25 14:46 Resp 16 05/15/25 14:46 BP 157/68 H 05/15/25 14:56 Pulse Ox 98 05/15/25 14:46 Oxygen Delivery Method Room Air 05/15/25 14:46 BMI result Body Mass Index 27.5 Tobacco/Smoking Status: Tobacco use Status Tobacco use date assessed 03/13/25 05/15/25 14:50 Patient Tobacco Use Status Former Tobacco user 05/15/25 14:50 Tobacco use type Cigarette 05/15/25 14:50 PHQ-9: PHQ-9 Score PHQ-9: Total score 0 05/15/25 14:50 Thrive Assessment: Date of Thrive Assessment Date Thrive assessed 09/12/24 05/15/25 14:50 Office Procedures Cerumen Removal From which ear canal was the cerumen removed: bilateral Removal: irrigation and otoscope w/curette Notes: patient tolerated procedure well [id number] Wax Removal by Spoon/Curette Coding Level of Care Code Est Pt Level 3 (93831) Add On Problem Visit Only Diagnoses Cerumen impaction H61.20 CPT Codes Office Procedure - CPT: 97336-Agw Wax Removal by Spoon/Curette ([id number]) Assessment & Plan Assessment & Plan (1) Cerumen impaction: Code(s): H61.20 - Impacted cerumen, unspecified ear Plan: History of Present Illness - The patient is a 79 year old female presenting with concerns of ear wax buil dup and changes in her urine. - She reports a history of trigger finger surgery and has cold hands. - She has experienced hearing difficulty in her left ear, which was not perceived as a typical blockage, and notes her hearing aids might be contributing to wax buildup. - The patient mentioned a prior ear irrigation procedure by Dr. Cam about three years ago. - The patient has observed her urine is dark and bubbly, which is a new occurrence, as her urine was previously clear. - She denies any history of urinary tract infections. Social History Review of Systems - Constitutional: Denies fever, chills. - HEENT: Reports hearing difficulty in the left ear. - Genitourinary: Reports dark, bubbly urine. - Denies history of urinary tract infection. - Musculoskeletal: Reports cold hands post-trigger finger surgery. Physical Exam General: Cooperative and healthy appearing Nutritional Appearance: Well nourished Orientation/consciousness: Patient oriented x3 Limitations: No limitations Head: Normal to inspection General: Appearance normal, both eyes and all related structures Neck: Normal visual inspection Chest: Normal palpation of entire chest wall Respiratory: Normal respiratory effort Neurology: Patient oriented x3 Results Plan - A urinalysis will be performed to investigate the patient's report of dark, bubbly urine. - Cerumen removal will be performed by the medical billing coder for bilateral impaction. Discussion Notes I informed the patient that I observed wax in both of her ears. I explained that the medical billing coder would remove the wax. Additionally, I advised that a urine sample would be collected and checked to address her concerns about its appearance. Patient Instructions - You will have the wax removed from both of your ears by the medical billing coder. - You will need to provide a urine sample so we can test it. Orders: Orders AMB Cerumen Removal Today H61.23 - Impacted cerumen, bilateral Medications: New sulfamethoxazole-trimethoprim 800-160 mg (Bactrim DS) 1 tab PO BID 10 tabs 0RF 5 days
[2025-05-15 14:46] VITALS: BP 163/72; PULSE 98; RESP 16; TEMP 36.8; O2SAT 98; BMI 27.5
[2025-05-15 14:56] VITALS: BP 157/68
== END 2025-05-15 15:45 | disposition home or self-care (01) ==
LOC: HO.HMCSH 14:35
PROVIDERS: PCP Internal Medicine; Visit Provider Internal Medicine
DX: H61.23 Impacted cerumen, bilateral (principal); R82.998 Other abnormal findings in urine

== ENCOUNTER → 2025-05-15 14:35 | Outpatient (BNVA) | payer OTHER, MEDICARE, SELFPAY | PROVIDERS: PCP Internal Medicine; Visit Provider Internal Medicine | DX: H61.23 Impacted cerumen, bilateral (principal) | CPT/HCPCS: 69210; 81003; 96127 ==